=== PATIENT | female | born 1970 | race Caucasian/White ===

== ENCOUNTER 2018-09-20 21:14 | Inpatient (IN) | payer OTHER ==
[2018-09-20 22:15] LABS: PLATELET COUNT 250 10^3/uL (150-400)
--- NOTE | 2018-09-20 22:30 | EDPHY ---
HPI/HX/ROS/PE/MDM Narrative: CHIEF COMPLAINT: Depression, Here for medical clearance HPI: The patient is a 48-year-old female with history depression. She describes severe depressive symptoms over the last few weeks. She was referred to the ECT department for ECT therapy. They have sent her to the ER for medical clearance and then likely transferred to their unit for ECT and further treatment. The patient denies any recent illness or pain. REVIEW OF SYSTEMS: Aside from elements discussed in the HPI, a comprehensive 10-point review of systems was reviewed and is negative. PMH: Includes severe major depression. Insulin-dependent diabetes. Hypertension. SOCIAL HISTORY: Denies drug abuse. PHYSICAL EXAM: General:Patient is alert, she is currently sobbing. ENT:Eyes are normal to inspection. ENT inspection normal. Neck: Normal inspection. Full range of motion. Respiratory:No respiratory distress. Breath sounds normal bilaterally. Cardiovascular: Regular rate and rhythm. Strong peripheral pulses. Normal cap refill. Abdomen:The abdomen is nontender to palpation. There are no peritoneal signs. There are normal bowel sounds. Back: Normal to inspection. No tenderness to palpation. Skin: Normal color. No rash. Warm and dry. Extremities: Normal appearance. Full range of motion. Neuro: Normal motor function. Normal sensory function. Psychiatric: Depressed affect, currently sobbing and in tears. ED Course: 10:15 p.m.: The patient is medically clear for further psychiatric treatment and evaluation. - Data Points Laboratory Results: Laboratory Results 09/20/18 22:00 09/20/18 22:00 09/20/18 09/20/18 09/20/18 22:06 22:00 22:00 WBC RBC Hgb Hct MCV MCH MCHC RDW Plt Count MPV Neut % (Auto) Lymph % (Auto) [place] % (Auto) Eos % (Auto) Baso % (Auto) Nucleat RBC Rel Count Absolute Neuts (auto) Absolute Lymphs (auto) Absolute Monos (auto) Absolute Eos (auto) Absolute Basos (auto) Absolute Nucleated RBC Immature Gran % Immature Gran # Sodium 139 mEq/L mEq/L (135-145) Potassium 4.4 mEq/L mEq/L (3.3-5.0) Chloride 105 mEq/L mEq/L (97-110) Carbon Dioxide 21 mEq/l L mEq/l (22-31) Anion Gap 13 mEq/L mEq/L (6-14) BUN 26 mg/dL H mg/dL (7-23) Creatinine 1.1 mg/dL H mg/dL (0.6-1.0) Estimated GFR 53 Glucose 214 mg/dL H mg/dL (70-100) Calcium 9.4 mg/dL mg/dL (8.5-10.4) Beta HCG, Qual NEGATIVE Urine Opiates Screen Pending Urine Barbiturates Pending Ur Phencyclidine Scrn Pending Ur Amphetamine Screen Pending U Benzodiazepines Scrn Pending Urine Cocaine Screen Pending U Marijuana (THC) Screen Pending Ethyl Alcohol < 10 mg/dL mg/dL (0-10) 09/20/18 22:00 WBC 8.04 10^3/uL 10^3/uL (3.80-9.50) RBC 4.36 10^6/uL 10^6/uL (4.18-5.33) Hgb 11.3 g/dL L g/dL (12.6-16.3) Hct 35.5 % L % (38.0-47.0) MCV 81.4 fL L fL (81.5-99.8) MCH 25.9 pg L pg (27.9-34.1) MCHC 31.8 g/dL L g/dL (32.4-36.7) RDW 16.1 % H % (11.5-15.2) Plt Count 250 10^3/uL 10^3/uL (150-400) MPV 9.5 fL fL (8.7-11.7) Neut % (Auto) 54.7 % % (39.3-74.2) Lymph % (Auto) 37.7 % % (15.0-45.0) [place] % (Auto) 6.5 % % (4.5-13.0) Eos % (Auto) 0.2 % L % (0.6-7.6) Baso % (Auto) 0.5 % % (0.3-1.7) Nucleat RBC Rel Count 0.0 % % (0.0-0.2) Absolute Neuts (auto) 4.40 10^3/uL 10^3/uL (1.70-6.50) Absolute Lymphs (auto) 3.03 10^3/uL H 10^3/uL (1.00-3.00) Absolute Monos (auto) 0.52 10^3/uL 10^3/uL (0.30-0.80) Absolute Eos (auto) 0.02 10^3/uL L 10^3/uL (0.03-0.40) Absolute Basos (auto) 0.04 10^3/uL 10^3/uL (0.02-0.10) Absolute Nucleated RBC 0.00 10^3/uL 10^3/uL (0-0.01) Immature Gran % 0.4 % % (0.0-1.1) Immature Gran # 0.03 10^3/uL 10^3/uL (0.00-0.10) Sodium Potassium Chloride Carbon Dioxide Anion Gap BUN Creatinine Estimated GFR Glucose Calcium Beta HCG, Qual Urine Opiates Screen Urine Barbiturates Ur Phencyclidine Scrn Ur Amphetamine Screen U Benzodiazepines Scrn Urine Cocaine Screen U Marijuana (THC) Screen Ethyl Alcohol General Time Seen by Provider: 09/20/18 21:26 Initial Vital Signs: Initial Vital Signs Temperature (C) 36.7 C 09/20/18 21:21 Heart Rate 67 09/20/18 21:21 Respiratory Rate 18 09/20/18 21:21 Blood Pressure 128/92 H 09/20/18 21:21 O2 Sat (%) 98 09/20/18 21:21 O2 Delivery Mode Room Air Allergies/Adverse Reactions: No Known Allergies Allergy (Unverified 09/20/18 21:24) Home Medications: Medication Instructions Recorded Insulin Detemir [Levemir] 16 unit SQ HS 09/20/18 Insulin Lispro [Humalog] 0 unit SQ 09/20/18 Labetalol HCl [Trandate 100 mg (*)] 100 mg PO BID 09/20/18 Lurasidone HCl [Latuda] 80 mg PO DAILY@0800 09/20/18 Mirtazapine [Remeron] 15 mg PO HS 09/20/18 Simvastatin [Zocor] 40 mg PO HS 09/20/18 Sodium Bicarbonate [Na Bicarb 650 650 mg PO TID 09/20/18 MG (RX)] clonazePAM [Clonazepam] 1 mg PO BID 09/20/18 hydrOXYzine HCL [Vistaril 25MG] 25 mg PO Q4 PRN 11/13/18 Departure - Departure Disposition: [facility] Clinical Impression: Severe major depression Condition: Fair Referrals: ANGÉLICA BRODY [Other] - As per Instructions
[2018-09-20] MEDS ORDERED: LORazepam 1 MG TAB ONE (22:51)
[2018-09-20] MEDS ORDERED: LORazepam 1 MG TAB PO ONE (22:56)
--- NOTE | 2018-09-20 22:58 | ASMTTCLDSP ---
TLC Discharge Disposition Disposition: Answers: Admit Disposition Notes: Notes: In consultation with [facility] on-call psychiatrist, Maxx Serrano MD. Dr. Serrano advised that the patient be directly admitted on a voluntary basis. Was patient given the Answers: Yes Inpatient Behavioral [facility] Prohibited Belongings List while in the ED? For inpatient Maxx Serrano MD admission, the following psychiatrist agreed to accept patient for admission to Behavioral [facility] ([facility]): Date Signed: 09/20/2018 10:57 PM Electronically Signed By:Kimberly Stevenson
--- NOTE | 2018-09-20 22:58 | CPEKG ---
Test Reason : OPEN Blood Pressure : / mmHG Vent. Rate : 065 BPM Atrial Rate : 064 BPM P-R Int : 154 ms QRS Dur : 091 ms QT Int : 424 ms P-R-T Axes : 039 002 012 degrees QTc Int : 441 ms Sinus rhythm Confirmed by Davis Montague ([id number]) on 09/20/2018 10:57:33 PM Referred By: Confirmed By:Davis Montague
[2018-09-21] MEDS ORDERED: MAG HYDROX/AL HYDROX/SIMETH 30 ML UDCUP PO PRN (01:15)
[2018-09-21] MEDS ORDERED: MAGNESIUM HYDROXIDE 30 ML UDCUP PO PRN (01:15)
[2018-09-21] MEDS ORDERED: MIRTAZAPINE 15 MG TAB PO ONE (01:30)
[2018-09-21] MEDS: LORazepam 0.5 MG TAB PO PRN (11:06)
[2018-09-21] MEDS: clonazePAM 0.5 MG TAB PO SCH ×2 (12:18→20:14)
[2018-09-21] MEDS: LABETALOL HCL 100 MG TAB PO SCH ×2 (12:45→20:15)
[2018-09-21] MEDS: LURASIDONE HCL 80 MG TAB PO SCH (12:45)
[2018-09-21] MEDS ORDERED: D50W 25 GM/50 ML SYR IVP PRN (13:10)
--- NOTE | 2018-09-21 13:34 | ASMTBHMTP ---
Master Treatment Plan Master Treatment Plan Answers: Depressed Mood without for: Suicidal Ideation Date: 09/21/2018 Diagnosis on Admission: Major Depressive Disorder Expected length of stay: 5-10 Reason for admission: Notes: Ct. is a 48 y[address] [facility]. Ct. was a direct admission to the unit. Plan is to have ct. start ECT treatment. Patient's stated presenting problems: Notes: "I have severe anxiety and depression in the last 12 years. This episode started in 2017 and i have been hospitalized 8 times since Dec." Patient's goals for treatment: Notes: "To feel better". Patient's strengths: Notes: "I'm friendly and helpful". Identify supports outside of hospital: Notes: friend Ayana, . Discharge criteria: Notes: SI will resolve and patient will have a plan to safely manage recurrent suicidal ideations. Initial disposition plan/considerations: Notes: Start ECT treatment. Participate in unit activities. Master Treatment Plan Required Signatures Psychiatrist signature: Answers: Maxx Serrano MD: RN on-shift signature: Answers: RN: Patient signature: Answers: Patient: Date Signed: 09/21/2018 01:33 PM Electronically Signed By:Jania Diaz
--- NOTE | 2018-09-21 13:51 | BCON ---
INTERNAL MEDICINE CONSULTATION DATE OF CONSULTATION: 09/21/2018 REFERRING PHYSICIAN: Mercy Bahena MD REASON FOR REFERRAL: Medical clearance for inpatient behavioral health stay. HISTORY OF PRESENT ILLNESS: This person was referred to [facility] for ECT treatment for refractory depression. She was cleared through the emergency department and admitted with plan for electroconvulsive therapy She currently is without any acute medical complaints. PAST MEDICAL HISTORY: 1. Diabetes mellitus. Likely this was type 2, but she is currently managed on insulin alone. 2. Hypertension. 3. Chronic kidney disease with exacerbation in the past due to treatment with lithium concurrent with lisinopril. 4. Crohn disease. 5. Obstructive sleep apnea. 6. Dyslipidemia. 7. Depression and anxiety. PAST SURGICAL HISTORY: She has had an ileostomy and presumably colectomy. MEDICATIONS: Prior to admission: 1. Labetalol 100 mg p.o. b.i.d. 2. Hydroxyzine 25 mg p.o. q.4 hours p.r.n. 3. Clonazepam 1 mg p.o. b.i.d. 4. Mirtazapine 15 mg p.o. q.h.s. 5. Lurasidone 80 mg p.o. daily. 6. Sodium bicarbonate 650 mg p.o. t.i.d. 7. Simvastatin 40 mg p.o. q.h.s. 8. Insulin detemir 16 units subcutaneous q.h.s. 9. Insulin lispro on a sliding scale. ALLERGIES: There are no known drug allergies. SOCIAL HISTORY: She is , lives with her . She has 2 adult children. She has worked as a bed teacher in the past. She is a nonsmoker, nondrinker. She reports that when she is not anxious and depressed, she is able to exercise with walking and swimming. FAMILY HISTORY: Noncontributory. REVIEW OF SYSTEMS: She denies pain, cough, dyspnea, fevers, chills, recent weight change, nausea, vomiting. There is no constipation or diarrhea. She reports that she can independently manage her ileostomy. She reports that when she is in a psychiatric facility, her blood sugar management is done by nurses, though at times, she has been able to do it herself as well. PHYSICAL EXAM: VITAL SIGNS: Blood pressure is 125/79, heart rate is 72, respiratory rate is 14, oxygen saturation is 95% on room air, temperature is 36.3 degrees centigrade. Weight is 103.9 kg for a body mass index of 44.7. GENERAL: This is a very obese woman lying in bed, dressed in street clothes, cooperative, in no acute distress. HEENT: Extraocular movements are intact. Pupils are equal, round, reactive to light. Mucous membranes are moist. Dentition is in good condition. She has a crowded airway, Mallampati class 4. NECK: Supple. HEART: Regular rate and rhythm with no murmurs, rubs, or gallops. LUNGS: Clear to auscultation bilaterally. ABDOMEN: Benign. EXTREMITIES: There is no cyanosis or clubbing. There is obesity. There is considerable subcutaneous fat, which masks the exam regarding possible edema. NEUROLOGIC: She is alert and oriented x3. Cranial nerves 2-12 are grossly intact. There is no focal weakness and sensation is intact to light touch. LABORATORY DATA: From yesterday, CBC revealed anemia with hemoglobin of 11.3 and hematocrit of 35.5, MCV was low at 81.4. Otherwise, CBC was unremarkable. Serum chemistry revealed slightly elevated creatinine at 1.1 with an estimated GFR of 53, BUN was also elevated at 26, She had a low carbon dioxide at 21. Hemoglobin A1c was 9.5. Liver function tests were normal. Lipid panel revealed triglycerides high at 188, cholesterol low at 129, LDL low at 34, and HDL normal at 57. Beta hCG was negative for . Toxicology screen in the serum was negative for ethyl alcohol and in the urine was negative for any substances of abuse. ASSESSMENT/RECOMMENDATIONS: 1. Mental health issues. Pending electroconvulsive therapy. 2. Diabetes mellitus, type 2, on insulin. Query whether she might benefit from other medications, such as metformin, a DPP-4 Inhibitor, or a GLP-1 agonist , which might have the added benefit of weight loss for her. For now, I have ordered a lispro insulin sliding scale. It would be in her interest to follow up with Endocrinology after her discharge. 3. Hypertension. Appears to be adequately controlled on labetalol. If she is not to receive lithium in the future, would consider changing to first-line agent for diabetics, which would be an DEBORA inhibitor or an ARB. She reports she has an outpatient cookie mixer helper and she can follow up with Nephrology regarding this decision. 4. Chronic kidney disease, stage 3. 5. Presence of ileostomy. She reports that she is able to manage it herself and has brought supplies. 6. Obstructive sleep apnea. She reports that she has brought her CPAP with her and it should be used while she is here. 7. Dyslipidemia. Continue statin. 8. Anemia, unclear etiology. I have ordered a reticulocyte count, as well as an iron panel to be added onto yesterday's labs. 9. Morbid obesity. Dietary consult. Encourage exercise. I see no medical contraindications to this patient's continued stay on the inpatient behavioral health unit or to any psychiatric medications or procedures. Thank you very much for including me in the care of this patient. I will continue to follow along regarding her glycemic management. Please do not hesitate to contact me or the hospitalist service should there be need for any other medical care. /[id number]/MODL MTDD
[2018-09-21] MEDS: SODIUM BICARBONATE 650 MG TAB PO SCH ×2 (15:29→20:15)
[2018-09-21] MEDS: INSULIN LISPRO 100 UNIT/ML SC SCH (16:53)
[2018-09-21] MEDS: ATORVASTATIN CALCIUM 20 MG TAB PO SCH (20:14)
[2018-09-21] MEDS ORDERED: INSULIN GLARGINE 100 UNITS/ML UNIT SC SCH (21:00)
[2018-09-22] MEDS: LURASIDONE HCL 80 MG TAB PO SCH (08:20)
[2018-09-22] MEDS: clonazePAM 0.5 MG TAB PO SCH ×2 (08:21→17:32)
[2018-09-22] MEDS: INSULIN LISPRO 100 UNIT/ML SC SCH ×3 (08:21→17:09)
[2018-09-22] MEDS: SODIUM BICARBONATE 650 MG TAB PO SCH ×3 (08:21→19:20)
[2018-09-22] MEDS: LABETALOL HCL 100 MG TAB PO SCH ×2 (08:21→19:19)
--- NOTE | 2018-09-22 09:20 | SOAPPROG ---
SOAP Progress Note Assessment/Plan: Assessment: Plan: Subjective: Pt seen yesterday and today. She is an inconsistent historian, I am in contact with recent providers and have requested records from recent hospitalizations. The general impression is that she is a good candidate for ECT despite numerous chronic medical conditions. I believe she has capacity for medical decisions making. Will involve her also. Hope to obtain adequate data by this afternoon and finalize decision for treatment. If we decide to proceed, could start as early as tomorrow. Pt is "100% in favor" of doing ECT. Left with patient educational materials yesterday. Objective: Vital Signs Temp Pulse Resp BP Pulse Ox 36.4 C 80 15 132/64 H 98 09/22/18 06:00 09/22/18 06:00 09/22/18 06:00 09/22/18 06:00 09/22/18 06:00 Laboratory Results 09/21/18 13:10 MSE: Marginally groomed, hyperactive, fidgety. Grunts, moans, sighs, puffs constantly during interview. Affect is dysphoric, blunted. Mood is "bad, real bad." TP is generally linear with negative perseverations on physical and mental health. TC reveals no psychosis. No active SI, though states, "I know I can't do this any more. I can't go on like this. I am not safe to go home." - Time Spent With Patient Time Spent With Patient: 75" total ICD10 Worksheet Patient Problems: Problems Problem Status Onset Severe major depression Acute
[2018-09-22] MEDS: LORazepam 0.5 MG TAB PO PRN (10:52)
[2018-09-22] MEDS ORDERED: CITRIC ACID/SODIUM CITRATE 30 ML UDCUP PO PRN (15:07)
[2018-09-22] MEDS ORDERED: NS 1,000 ML IV PRN (15:07)
[2018-09-22] MEDS ORDERED: ONDANSETRON DISINTEGRATING 4 MG TAB PO PRN (15:07)
[2018-09-22] MEDS ORDERED: HYDROCODONE/APAP 5/325 TAB PO PRN (15:12)
--- NOTE | 2018-09-22 16:51 | BAPA ---
DATE OF SERVICE: 09/21/2018 DATE OF EVALUATION: 09/21/2018, and 09/22/2018. SOURCES OF INFORMATION: Include review of psychiatric admission history done 09/09/2018, and by Dr. Nancy Simental MD at the [facility] in [place], [place], personal conversation with Dr. Melissa Ley, phone # [phone], who is also a covering psychiatrist at the [facility] and had treated the patient, kiranie w with the patient over 2 days. TIME SPENT: 120 minutes. CHIEF COMPLAINT: "I'm at the end of my rope. I can't take this anymore. I don't know what to do. I can't do anything." HISTORY OF PRESENT ILLNESS: Patient is a 48-year-old female with a history of approximately 10 years of fairly treatment resistant depression. She states that she has been treated with Zoloft and Effe xor over the last 10 years, which she states have been moderately helpful, but that she has never exp erienced a full remission of her depression. 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 She states she notic ed a significant decline in functioning at that time, though is unable to relate it to any specific e vent or circumstance. She continued in her roles until December of 2017, at which time, she states t hat she began to suffer from much more severe feelings of depression and anxiety leading to thoughts of suicide. She was hospitalized at that time at [facility] in [place] and states that this wa s helpful. She returned home and her symptoms quickly returned, and she was then rehospitalized acut mk and for PHP at [place] in January. She again felt better and her medications were adjusted, thou gh she is unclear what was prescribed. She does know that in the last hospitalization, she was presc ribed Latuda, which she believes has been unhelpful thus far. She then had several other discharges and readmissions to either [facility] or [facility] totaling a total of 7 hospitalizations. Her last hospitalization was in August of 2018, at [facility] for continued severe depression and an xiety, and they reportedly then made a plan to transfer her to the [facility], which is a residential [facility] in [place]. She arrived at this treatment facility and the staff there apparently fe lt that she was not a good match. For one thing, they are a trauma recovery facility and she has no past history of traumas. She also appeared to be at a higher level of acuity than they typically acc ept in the residential setting, and recommended that she be transferred to a local acute care psychia tric facility. Her insurance company reportedly did not authorize this, stating that she needed to r eturn to [place] if she was to seek further inpatient treatment. The staff at the [facility] also belie ve she was a good candidate for ECT and stated that this [facility] had a university a ffiliation and was able to provide ECT, but the insurance again denied it. The patient's was then contacted and he flew back to [place], picked her up, and brought her back to [place], where katie miller was taken to the emergency department at [facility]. She was evaluated there by our TLC providers and felt to remain seriously depressed. She has disavowed thoughts of suicide directly , but has made numerous statements in regard to not being able to live any longer and not being able to care for herself. She was ultimately admitted for further evaluation to our service. I saw the patient yesterday for approximately an hour, then today again for 30 minutes. I discussed with her, her recent history and she stated that she could not remember dates and times or the names of most medications she was given. I did not have records from this facility, so they have been requ ested, and so I do not have specifics about medications that she took. She states that she was on mu ltiple antidepressants and "other meds," but cannot remember names. She states that she has never ex perienced depression to the extent that she has now, and the only precipitant she can identify is the of her mother in June of this year, but that was after she had already had 5 recurrent hospi talizations since the beginning of 2018. She acknowledges feeling out of control and unable to care for herself, and states that this is very unusual for her. She states that she is unable to interact appropriately with others, and that normally she is "happy and easy going." On the unit since arriving, she has appeared extremely anxious, unable to give much history, pacing, panting, and moaning at all times. She sits in the day room or groups, though was unable to actively participate due to what appears to be internal preoccupation or the severe anxiety. She is able to state repeatedly that she wants help and that she does not feel right or that she does not feel well. She states that she would like to do ECT "because I think it will help me." She states her is supportive of this. I provided her with the standard educational materials yesterday, which she states she reviewed herself and then reviewed with her , and asked a number of specific questi ons in regard to the anesthesia, the course of treatment, and the mode of treatment. I have not been able to speak with her directly, though I have left him a message. He apparently does not g et cell service at his job. Patient's index symptoms at this time are her severely depressed mood, intense and overriding anxiety , both generalized and episodically more acute, trouble concentrating, short-term memory deficits, pe rseveration on and dying, and feelings of hopelessness and helplessness, feelings of shame and guilt and disordered sleep. PAST PSYCHIATRIC HISTORY: Largely as above. Patient has had the [facility] recent [facility], and then, the brief stay at the residential facility in [place]. She denies hospital hospitalizations prior to 2018. She denies specific history of suicide attempts. She could not recall what medicine she has previously taken. ALLERGIES: No known medical allergies. CURRENT MEDICATIONS: Clonazepam 1 mg p.o. b.i.d., Latuda 80 mg daily, sodium bicarb 650 mg t.i.d., Z ocor 40 mg at h.s., labetalol 100 mg b.i.d., Levemir insulin 16 units subcu at at bedtime, recently i ncreased to 19 units by our rn float, Remeron 15 mg h.s., and Humalog per sliding scale. PAST MEDICAL HISTORY: Significant for type 2 diabetes that is currently managed with insulin only, h ypertension, chronic kidney disease possibly due to lithium toxicity, Crohn disease, obstructive slee p apnea on CPAP, dyslipidemia. PAST SURGICAL HISTORY: Patient has had a total colectomy with ileostomy due to Crohn disease. SOCIAL HISTORY: Patient lives in [place] with her . She has degrees in psychology and special education, though has not worked since February of this year after she had this serious decline. Katie miller has reportedly applied for social security disability income. She has 2 adult children, and a 23-y ear-old lives at home with her. She was born and raised in [place], [place], and has 2 older brot hers. She is observant of the [employer] and states that they do not use any electrical appliances on the sablinden. She mentions this because her may then be unavailable on wednesday unt il wednesday. SUBSTANCE ABUSE HISTORY: Noncontributory. FAMILY HISTORY: Noncontributory per patient's report. DIAGNOSTIC DATA: Admission laboratory: CBC shows an H and H down at 11.3 and 35.5 with an MCV low at 81.4. Iron was normal, TIBC was normal at 387. Reticulocyte count was normal at 0.110 and the perc ent reticulocyte was normal at 2.44. EKG showed a QTc of 441 msec and otherwise normal sinus rhythm. MENTAL STATUS EXAMINATION: Reveals an obese, somewhat disheveled female, casually appropriately dres sed. She is alert, interactive, and responds to her name. She struggles to interact, however, panti ng and moaning throughout the interview. She often murmurs the words "no" and "I feel bad." She henrietta es poor eye contact with her head generally downcast. She answers most questions in a goal-directed fashion, though there is some delay at times. Her affect is blunted to flat, dysphoric, stable, and congruent. Her mood is described as "really depressed." Her thought process is linear and goal dire cted. Her thought content reveals an overriding somatic focus, though no apparent delusions. She de nies auditory, visual, or tactile hallucinations. She is alert and oriented to person, place, time, and situation, and her sensorium is clear. Her intellect appears to be at least average as evidence d by her educational and occupational history, fund of knowledge, and vocabulary. She denies active thoughts of suicide, though states she no longer wants to live in her current condition. Her insight and judgment appear to be good. IMPRESSION: 1. Major depressive disorder, recurrent, severe, without psychosis, chronic with treatment-resistant features. 2. Possible generalized anxiety disorder. 3. Crohn disease, status post total colectomy and ileostomy. 4. Type 2 diabetes. 5. Hypertension. 6. Obesity. 7. Sleep apnea. 8. Unemployment, financial stressors. Patient is a 48-year-old female with a history of at least 10 years of worsening depression. She has had a worsened course over the last 18 months with a more precipitous decline since December of this year. It is unclear what the precipitants, if any were to this, other than the obvious physiologic stress that she is under with her multiple systemic illnesses, including her poorly managed diabetes. Regardless, she appears to be severely depressed at this time and has shown herself to be completel y unable to manage outside of the hospital. It is unclear why she got referred to a trauma program o n a residential level out of state, but I agree completely that she needs to be in an inpatient unit at this time. I further agree that ECT is an appropriate course of treatment at this time. I have a letter of referral from Dr. Fawad Morales, medical data entry clerk at the [facility] and I have spoken with Lucretia Ley personally, who strongly recommends electroconvulsive therapy as well. I have discussed the risks, benefits, and alternatives of ECT with the patient at length, both yester day and then today after she had the opportunity to review the educational materials. She is struggl ing at this time to interact well due to her severe anxiety and depression, but she does appear to un derstand the materials and be able to provide informed consent. I have discussed with her specifical ly that she meets criteria in having failed 3 previous trials of antidepressants, mood stabilizers, o r antipsychotics. She has also had a significantly extended duration of subtherapeutic response to p revious treatments. I believe that she is at high risk for suicide given the severity of her multipl e physical illnesses and her depression, and the promise of neurovegetative symptoms. She does not a ppear to have a primary personality disorder as her recent decompensation is acute and time limited a nd not something that has existed for a long time. She has no specifically contraindicating medical illnesses, though we will definitely need to pay attention to her diabetes and she may be difficult t o ventilate with her history of sleep apnea, and her body habitus. I have discussed with the patient that her main alternative to electroconvulsive therapy is ongoing m edication changes. Due to her treatment previous treatment response and the severity of her current symptoms, I have indicated to her a 15% to 18% chance of reaching remission with further medication t rials. I have also indicated a 60% to 65% chance of remission with electroconvulsive therapy. I discussed the course of treatment and the patient understands that the acute phase is performed on a Wednesday, Wednesday, Wednesday basis. She requests to be in the hospital as she feels she cannot care f or herself at home, and her has reported to staff that he does not believe that he can care f or her either. Previous recent trials at home have failed and I believe that the only reasonable cou rse is to have her remain inpatient at this time until she improves with electroconvulsive therapy an d is able to return home with a higher functional status. I discussed the typical range of treatments between 9 and 12, though with her, I indicated that she m ay require more given the severity of her symptoms. Patient understands there is no guarantee electr oconvulsive therapy will be effective. I discussed the extremely rare, rare, uncommon, and common side effects of electroconvulsive therapy, including major risks, such as occurring 1 in 10,000, and severe risks that are possible in th e cardiovascular and central nervous systems. I discussed common side effects, such as nausea and he adaches, as well as confusion and agitation that are possible. Particular time was spent discussing transient and persistent cognitive side effects of electroconvul sive therapy. Side effects, such as anterograde, retrograde, and autobiographical memory deficiencie s were discussed with emphasis on decreased working memory and trouble with retention of information, especially during the acute course, especially on the treatment day. The patient understands the behavioral restrictions requisite with electroconvulsive therapy, includi ng n.p.o. requirements and time frames, 24-hour monitoring on treatment days. No driving during the acute phase of treatment or on any treatment day, and the fact that there will be medication adjustme nts during treatment. She states that she is overwhelmed by the prospect of organizing any of that, and I reiterate to her that she will be in the hospital for the beginning of her treatment, and as sh e improves, she will likely be able to transition back home. All-in-all, I think the patient is a good candidate for electroconvulsive therapy due to the severity of her symptoms and her history of treatment resistance. I recommend we proceed with electroconvuls nae therapy as soon as possible, and the patient is agreeable. Again, I will discuss this with her h band at my first convenience. /[id number]/MODL
[2018-09-22] MEDS: ATORVASTATIN CALCIUM 20 MG TAB PO SCH (19:19)
[2018-09-22] MEDS: INSULIN GLARGINE 100 UNITS/ML UNIT SC SCH (19:20)
[2018-09-23] MEDS ORDERED: ONDANSETRON DISINTEGRATING 4 MG TAB PO PRN (04:00)
[2018-09-23] MEDS ORDERED: CITRIC ACID/SODIUM CITRATE 30 ML UDCUP PO PRN (04:00)
[2018-09-23] MEDS ORDERED: LIDOCAINE 2% 5 ML SDV ONE (04:57)
[2018-09-23] MEDS ORDERED: CITRIC ACID/SODIUM CITRATE 30 ML UDCUP ONE (05:36)
[2018-09-23] MEDS ORDERED: ONDANSETRON DISINTEGRATING 4 MG TAB ONE (05:36)
[2018-09-23] MEDS: NS 1,000 ML IV PRN (06:01)
--- NOTE | 2018-09-23 06:08 | PDANEPAE ---
ECT Pre Anesthetic Evaluation Allergies/Adverse Reactions: No Known Allergies Allergy (Unverified 09/20/18 21:24) Patient ID confirmed: Yes H&P reviewed: Yes Pre-anesthetic history reviewed: Yes Heart: regular rate and rhythym Lungs: no respiratory distress Mallampati Score: Class 3 ASA Status: III Home Medications: Medication Instructions Recorded Insulin Detemir [Levemir] 16 unit SQ HS 09/20/18 Insulin Lispro [Humalog] 0 unit SQ AC 09/20/18 Labetalol HCl [Trandate 100 mg (*)] 100 mg PO BID 09/20/18 Lurasidone HCl [Latuda] 80 mg PO DAILY@0800 09/20/18 Mirtazapine [Remeron] 15 mg PO HS 09/20/18 Simvastatin [Zocor] 40 mg PO HS 09/20/18 Sodium Bicarbonate [Na Bicarb 650 650 mg PO TID 09/20/18 MG (RX)] clonazePAM [Clonazepam] 1 mg PO BID 09/20/18 hydrOXYzine HCL [Vistaril 25MG] 25 mg PO Q4 PRN 09/20/18 Medication review: completed Patient interviewed: Yes Patient examined: Yes Anesthetic plan discussed with patient: Yes Anesthetic risks discussed with patient: Yes ECT Pre-Anesthetic History - Height & Weight Height: 152.4 cm Weight: 103.873 kg BMI: 44.72 - Anesthesia History Hx Anesthesia Complications (with details): None Family Hx Anesthesia Complications: None - Medications In the Past 6 Months the Patient Has Taken: Insulin, Blood Pressure Medication - Tobacco/Alcohol/Drug Use Smoking Status: Never smoked Hx Drug/Substance Abuse: No Alcohol Use: No - Prior Surgeries/Hospitalizations Prior Surgeries: Ileostomy, unsure what year. Prior Medical Hospitalizations: Patient unsure, besides ileostomy surgery. - Pulmonary History ECT Hx Asthma: No Hx Abnormal Chest X-Ray: No Hx Oxygen in Use at Home: No - Cardiovascular History Hx Hypertension: Yes Currently Uses Hypertension Medication: Yes Hx Arrhythmias: No Hx Palpitations: No Hx Chest Pain: No Hx Coronary Artery / Peripheral Vascular Disease: No Hx Blood Clot: No - Neurologic History Hx Cerebrovascular Accident: No Hx CT Scan Or MRI Of The Brain: No Hx Epilepsy, Convulsions, Seizures, Or Blackouts: No Hx Frequent Or Severe Headaches: No Hx Numbness: No Hx Neurologic Disorder: No - Dental History Current Dental Issues: None - Endocrine History Hx Diabetes: Yes Current Daily Insulin Injections: Yes Hx Thyroid Problems: No Endocrine History Comment: Pt takes Lantus at night and Lispro TID with meals. - Renal/Urologic History Hx Renal Disorders: No Hx Urinary Tract Problems: No - Liver History Hx Hepatic Disorders: No - Cancer History Hx Cancer: No - Hematology History Hx Unexplained Bleeding Of Any Type: No Hx Ease Of Bruising: No Hx Anemia: No - Gastrointestinal History Hx Gastroesophogeal Reflux Disease: No Hx Ulcers: No Hx Hiatal Hernia: No Hx Difficulty Swallowing: No - Musculoskeletal Hisory Hx Chronic Pain: No Hx Arthritis: No - Opthalmic History Hx Glaucoma: No Visual Assistive Devices: Glasses Hx Opthalmic Disorders: No - Other Health History Physical Disabililty: No Recent Cough, Cold, or Fever: No Significant Weight Loss In The Last 4 Months: No Possible the Patient Might be : No
--- NOTE | 2018-09-23 06:17 | PDECTPN ---
ECT Progress Note Patient Problems: Problems Problem Status Onset Code Severe major depression Acute F32.2 Date: 09/23/18 ECT provider: Krystian Serrano Anesthesia: Huy Sidhu Stimulus dose (%): 35 Pulse width: 0.5 ECT EMG (sec): 34 ECT EEG (sec): 73 ECT treatment type: bilateral QIDS-SR Total Score: 14 QIDS-SR Question #12 Score: 0 MMSE Total Score (Max = 21): 17 Next ECT date: 09/26/18 Next ECT time: 06:30 Home medications: Medication Instructions Recorded Insulin Detemir [Levemir] 16 unit SQ HS 09/20/18 Insulin Lispro [Humalog] 0 unit SQ AC 09/20/18 Labetalol HCl [Trandate 100 mg (*)] 100 mg PO BID 09/20/18 Lurasidone HCl [Latuda] 80 mg PO DAILY@0800 09/20/18 Mirtazapine [Remeron] 15 mg PO HS 09/20/18 Simvastatin [Zocor] 40 mg PO HS 09/20/18 Sodium Bicarbonate [Na Bicarb 650 650 mg PO TID 09/20/18 MG (RX)] clonazePAM [Clonazepam] 1 mg PO BID 09/20/18 hydrOXYzine HCL [Vistaril 25MG] 25 mg PO Q4 PRN 09/20/18 Medication review: completed Current treatment plan: acute phase Treatment plan frequency: 3 times per week ECT narrative: Pt presents for initial ECT treatment. She remains very anxious and depressed; helpless, hopeless. She voices expectation that she will benefit from ECT. Given opportunity to ask further questions, states she is "good."
[2018-09-23] MEDS ORDERED: ROCURONIUM 50 MG/5 ML VIAL ONE ×2 (06:31→06:53)
[2018-09-23] MEDS ORDERED: fentaNYL 100 MCG/2 ML INJ ONE ×2 (06:31→06:52)
[2018-09-23] MEDS ORDERED: ONDANSETRON 4 MG/2 ML VIAL ONE ×2 (06:31→06:52)
[2018-09-23] MEDS ORDERED: SUCCINYLCHOLINE CHLORIDE 200 MG/10 ML VIAL ONE ×2 (06:32→06:53)
[2018-09-23] MEDS ORDERED: METHOHEXITAL SODIUM 100 MG/10 ML SYR IVP ONE (06:32)
[2018-09-23] MEDS ORDERED: GLYCOPYRROLATE 0.2 MG/1 ML VIAL ONE ×2 (06:34→06:52)
[2018-09-23] MEDS ORDERED: MIDAZOLAM 2 MG/2 ML VIAL ONE ×2 (06:34→06:52)
--- NOTE | 2018-09-23 06:50 | PDHPUP ---
History & Physical Update H&P update statement: This history and physical update is based on an assessment of the patient which was completed after admission or registration (within 24 hours), but prior to the surgery/procedure. H&P update: H&P reviewed & patient examined, no change in patient's condition since H&P completed
[2018-09-23] MEDS ORDERED: ETOMIDATE 20 MG/10 ML VIAL ONE (06:52)
[2018-09-23] MEDS ORDERED: PROPOFOL 200 MG/20 ML VIAL ONE (06:52)
[2018-09-23] MEDS ORDERED: KETOROLAC 30 MG/1 ML SDV ONE (06:52)
[2018-09-23] MEDS ORDERED: LABETALOL HCL 5 MG/ML 20 ML MDV ONE (07:11)
[2018-09-23] MEDS: INSULIN LISPRO 100 UNIT/ML SC SCH ×3 (08:39→16:51)
[2018-09-23] MEDS: LURASIDONE HCL 80 MG TAB PO SCH (08:39)
[2018-09-23] MEDS: SODIUM BICARBONATE 650 MG TAB PO SCH ×3 (08:40→20:29)
[2018-09-23] MEDS: LABETALOL HCL 100 MG TAB PO SCH ×3 (08:40→20:29)
[2018-09-23] MEDS: clonazePAM 0.5 MG TAB PO SCH ×2 (08:40→20:28)
[2018-09-23] MEDS: FERROUS SULFATE 325 MG TAB PO SCH (08:40)
--- NOTE | 2018-09-23 15:14 | ASMTCMCOM ---
CM Note CM Note Notes: CC attempted to met with pt. but pt. was asleep each time CC approached. Pt. had her first ECT this morning. Staff report pt. sleeping 8.5 hours and being medication compliant. Pt. is scheduled for ECT on Wednesday Date Signed: 09/23/2018 03:13 PM Electronically Signed By:Amy Dozier
[2018-09-23] MEDS: INSULIN GLARGINE 100 UNITS/ML UNIT SC SCH (20:28)
[2018-09-23] MEDS: ATORVASTATIN CALCIUM 20 MG TAB PO SCH (20:55)
[2018-09-24] MEDS: FERROUS SULFATE 325 MG TAB PO SCH (08:40)
[2018-09-24] MEDS: INSULIN LISPRO 100 UNIT/ML SC SCH ×3 (08:40→17:44)
[2018-09-24] MEDS: clonazePAM 0.5 MG TAB PO SCH ×2 (08:40→20:07)
[2018-09-24] MEDS: LURASIDONE HCL 80 MG TAB PO SCH (08:40)
[2018-09-24] MEDS: LABETALOL HCL 100 MG TAB PO SCH ×2 (08:41→20:08)
[2018-09-24] MEDS: SODIUM BICARBONATE 650 MG TAB PO SCH ×3 (08:41→20:08)
--- NOTE | 2018-09-24 09:50 | ASMTCMCOM ---
CM Note CM Note Notes: Client remains on the unit through out the day watching TV and being around peers. Client continues to exhibit anxious behaviors, inappropriately coming up to staff with request. Her anxious behaviors continue to present the same: hyperventilating, soft broken speech, active body language, she presents as hopeless to staff and others; while presenting with anxious/labile affect. Date Signed: 09/24/2018 09:49 AM Electronically Signed By:Raúl Zafar
--- NOTE | 2018-09-24 13:46 | SOAPPROG ---
SOAP Progress Note Assessment/Plan: Assessment: Diabetes mellitus. Fastings continue high. Increased insulin glargine from 19 U and HS to 22 U at HS starting 09/24/2018. Observed patient to be highly anxious. Did not eat lunch. Scheduled lispro insulin was held. Would like to discuss initiating metformin but she is not in an appropriate mental state for discussion at present. Will continue to follow. 09/24/18 13:44 Subjective: Blood sugar review Objective: Vital Signs Temp Pulse Resp BP Pulse Ox 36.5 C 78 16 126/79 H 100 09/23/18 08:45 09/24/18 08:41 09/24/18 06:00 09/24/18 08:41 09/24/18 06:00 Laboratory Results 09/21/18 13:10 09/23/18 09/24/18 09/25/18 05:59 05:59 05:59 Intake Total 400 Balance 400 ICD10 Worksheet Patient Problems: Problems Problem Status Onset Severe major depression Acute
[2018-09-24] MEDS: LORazepam 0.5 MG TAB PO PRN (16:58)
--- NOTE | 2018-09-24 17:33 | SOAPPROG ---
SOARCELIA Progress Note Assessment/Plan: Assessment: Per Dr. Serrano's last note: Pt presents for initial ECT treatment. She remains very anxious and depressed; helpless, hopeless. She voices expectation that she will benefit from ECT. Given opportunity to ask further questions, states she is "good." Plan: 09/24/18 17:29 1. Patient lying in bed fully clothed. Anxious, feeling "dizzy." She admits she hasn't been drinking enough fluids and didn't eat much lunch. MD encouraged appropriate intake. 2. Patient says she can't tell any difference from ECT "yet." 3. Voluntary Subjective: Patient lying in bed when MD first met her. She reports feeling "anxious" and dizzy today. MD encouraged sufficient fluid intake as patient said she hadn't been eating or drinking much. In afternoon, patient attended group therapy and seemed calmer and more engaged. She denied any SI/HI. Objective: Vital Signs Temp Pulse Resp BP Pulse Ox 36.5 C 78 16 126/79 H 100 09/23/18 08:45 09/24/18 08:41 09/24/18 06:00 09/24/18 08:41 09/24/18 06:00 Laboratory Results 09/21/18 13:10 09/23/18 09/24/18 09/25/18 05:59 05:59 05:59 Intake Total 400 Balance 400 MSE: Affect: Anxious Mood: "Anxious" TP: Linear TC: Denies any SI/HI Insight /Judgment: Fair - Time Spent With Patient Time Spent With Patient: 15" - Pending Discharge Pending Discharge Within 24 Hours: No Pending Discharge Within 48 Hours: No ICD10 Worksheet Patient Problems: Problems Problem Status Onset Severe major depression Acute
[2018-09-24] MEDS: ATORVASTATIN CALCIUM 20 MG TAB PO SCH (20:07)
[2018-09-24] MEDS: INSULIN GLARGINE 100 UNITS/ML UNIT SC SCH (22:51)
[2018-09-25] MEDS: INSULIN LISPRO 100 UNIT/ML SC SCH ×3 (08:24→17:43)
[2018-09-25] MEDS: clonazePAM 0.5 MG TAB PO SCH ×2 (08:25→17:21)
[2018-09-25] MEDS: LURASIDONE HCL 80 MG TAB PO SCH (08:25)
[2018-09-25] MEDS: SODIUM BICARBONATE 650 MG TAB PO SCH ×3 (08:25→20:06)
[2018-09-25] MEDS: FERROUS SULFATE 325 MG TAB PO SCH (08:27)
[2018-09-25] MEDS: LABETALOL HCL 100 MG TAB PO SCH ×2 (08:27→20:06)
--- NOTE | 2018-09-25 17:07 | SOAPPROG ---
SOAP Progress Note Assessment/Plan: Assessment: Per Dr. Serrano's last note: Pt presents for initial ECT treatment. She remains very anxious and depressed; helpless, hopeless. She voices expectation that she will benefit from ECT. Given opportunity to ask further questions, states she is "good." Plan: 09/24/18 17:29 1. Patient lying in bed fully clothed. Anxious, feeling "dizzy." She admits she hasn't been drinking enough fluids and didn't eat much lunch. MD encouraged appropriate intake. 2. Patient says she can't tell any difference from ECT "yet." 3. Voluntary 09/25/18 17:04 1. At times tearful and anxious. Other times smiling, engaged in milieu activities/groups. 2. Dr. Pinto increased NANCY dose of Glargine. FSBS this AM were 179-255. 3. Voluntary 4. Next ECT on Wednesday Subjective: Patient was calmer and less anxious this AM. However, after visit with her and daughter, patient became tearful and sad. She slept 7.5 hrs last night and ate 100% of meals. She says she feels "safe" on unit and denies any SI. Objective: Vital Signs Temp Pulse Resp BP Pulse Ox 36.5 C 78 16 123/62 H 96 09/23/18 08:45 09/25/18 08:27 09/25/18 06:00 09/25/18 08:27 09/25/18 06:00 Laboratory Results 09/21/18 13:10 09/24/18 09/25/18 09/26/18 05:59 05:59 05:59 Intake Total 400 Balance 400 MSE: Affect: Tearful at times, smiling at other times Mood: "Anxious" TP: Linear TC: Denies any SI/HI, no delusions Insight/Judgment: Fair - Time Spent With Patient Time Spent With Patient: 15" - Pending Discharge Pending Discharge Within 24 Hours: No Pending Discharge Within 48 Hours: No ICD10 Worksheet Patient Problems: Problems Problem Status Onset Severe major depression Acute
[2018-09-25] MEDS: ATORVASTATIN CALCIUM 20 MG TAB PO SCH (20:06)
[2018-09-25] MEDS: INSULIN GLARGINE 100 UNITS/ML UNIT SC SCH (20:06)
[2018-09-26] MEDS: ACETAMINOPHEN 325 MG TAB PO PRN ×2 (04:19→19:16)
[2018-09-26] MEDS ORDERED: LIDOCAINE 2% 5 ML SDV ONE (06:08)
[2018-09-26] MEDS ORDERED: ONDANSETRON DISINTEGRATING 4 MG TAB PO PRN (07:15)
[2018-09-26] MEDS ORDERED: CITRIC ACID/SODIUM CITRATE 30 ML UDCUP PO PRN (07:15)
[2018-09-26] MEDS ORDERED: NS 1,000 ML IV PRN (07:15)
[2018-09-26] MEDS: clonazePAM 0.5 MG TAB PO SCH ×2 (07:38→17:28)
[2018-09-26] MEDS: SODIUM BICARBONATE 650 MG TAB PO SCH (07:59)
[2018-09-26] MEDS: LURASIDONE HCL 80 MG TAB PO SCH (08:00)
[2018-09-26] MEDS: LABETALOL HCL 100 MG TAB PO SCH ×2 (08:01→20:25)
[2018-09-26] MEDS: INSULIN LISPRO 100 UNIT/ML SC SCH ×3 (08:24→17:31)
[2018-09-26] MEDS ORDERED: CITRIC ACID/SODIUM CITRATE 30 ML UDCUP ONE (08:52)
[2018-09-26] MEDS ORDERED: ONDANSETRON DISINTEGRATING 4 MG TAB ONE (08:52)
[2018-09-26] MEDS: NS 1,000 ML IV PRN (09:06)
[2018-09-26] MEDS ORDERED: MIDAZOLAM 2 MG/2 ML VIAL ONE (09:09)
[2018-09-26] MEDS ORDERED: METHOHEXITAL SODIUM 100 MG/10 ML SYR IVP ONE (09:10)
[2018-09-26] MEDS ORDERED: fentaNYL 100 MCG/2 ML INJ ONE (09:10)
--- NOTE | 2018-09-26 09:20 | POSTANESTH ---
Post Anesthetic Evaluation Cardiovascular Status: Normal, Stable Respiratory Status: Normal, Stable Level of Consciousness/Mental Status: Can Participate in Eval, Other, See Comment (flat affect, similar to pre-op) Pain Control: Adequate, Prn Tx Ordered Nausea/Vomiting Control: Adequate, Prn Tx Ordered Complications Possibly Related to Anesthesia: None Noted
--- NOTE | 2018-09-26 09:20 | PDHPUP ---
History & Physical Update H&P update statement: This history and physical update is based on an assessment of the patient which was completed after admission or registration (within 24 hours), but prior to the surgery/procedure. H&P update: H&P reviewed & patient examined, changes noted (Pt is an inpatient. Please see progress notes for any daily changes. BS better controlled today.)
[2018-09-26] MEDS ORDERED: PROPOFOL 200 MG/20 ML VIAL ONE (09:24)
--- NOTE | 2018-09-26 09:32 | PDANEPAE ---
ECT Pre Anesthetic Evaluation Allergies/Adverse Reactions: No Known Allergies Allergy (Unverified 09/20/18 21:24) Patient ID confirmed: Yes H&P reviewed: Yes Pre-anesthetic history reviewed: Yes Heart: regular rate and rhythym Lungs: no respiratory distress Mallampati Score: Class 3 ASA Status: III Home Medications: Medication Instructions Recorded Insulin Detemir [Levemir] 16 unit SQ HS 09/20/18 Insulin Lispro [Humalog] 0 unit SQ AC 09/20/18 Labetalol HCl [Trandate 100 mg (*)] 100 mg PO BID 09/20/18 Lurasidone HCl [Latuda] 80 mg PO DAILY@0800 09/20/18 Mirtazapine [Remeron] 15 mg PO HS 09/20/18 Simvastatin [Zocor] 40 mg PO HS 09/20/18 Sodium Bicarbonate [Na Bicarb 650 650 mg PO TID 09/20/18 MG (RX)] clonazePAM [Clonazepam] 1 mg PO BID 09/20/18 hydrOXYzine HCL [Vistaril 25MG] 25 mg PO Q4 PRN 09/20/18 Patient interviewed: Yes Patient examined: Yes See previous record: Yes Anesthetic plan discussed with patient: Yes Anesthetic risks discussed with patient: Yes ECT Pre-Anesthetic History - Height & Weight Height: 152.4 cm Weight: 103.873 kg BMI: 44.72 - Anesthesia History Hx Anesthesia Complications (with details): None Family Hx Anesthesia Complications: None - Medications In the Past 6 Months the Patient Has Taken: Insulin, Blood Pressure Medication - Tobacco/Alcohol/Drug Use Smoking Status: Never smoked Hx Drug/Substance Abuse: No Alcohol Use: No - Prior Surgeries/Hospitalizations Prior Surgeries: Ileostomy, unsure what year. Prior Medical Hospitalizations: Patient unsure, besides ileostomy surgery. - Pulmonary History ECT Hx Asthma: No Hx Abnormal Chest X-Ray: No Hx Oxygen in Use at Home: No - Cardiovascular History Hx Hypertension: Yes Currently Uses Hypertension Medication: Yes Hx Arrhythmias: No Hx Palpitations: No Hx Chest Pain: No Hx Coronary Artery / Peripheral Vascular Disease: No Hx Blood Clot: No - Neurologic History Hx Cerebrovascular Accident: No Hx CT Scan Or MRI Of The Brain: No Hx Epilepsy, Convulsions, Seizures, Or Blackouts: No Hx Frequent Or Severe Headaches: No Hx Numbness: No Hx Neurologic Disorder: No - Dental History Current Dental Issues: None - Endocrine History Hx Diabetes: Yes Current Daily Insulin Injections: Yes Hx Thyroid Problems: No Endocrine History Comment: Pt takes Lantus at night and Lispro TID with meals. - Renal/Urologic History Hx Renal Disorders: No Hx Urinary Tract Problems: No - Liver History Hx Hepatic Disorders: No - Cancer History Hx Cancer: No - Hematology History Hx Unexplained Bleeding Of Any Type: No Hx Ease Of Bruising: No Hx Anemia: No - Gastrointestinal History Hx Gastroesophogeal Reflux Disease: No Hx Ulcers: No Hx Hiatal Hernia: No Hx Difficulty Swallowing: No - Musculoskeletal Hisory Hx Chronic Pain: No Hx Arthritis: No - Opthalmic History Hx Glaucoma: No Visual Assistive Devices: Glasses Hx Opthalmic Disorders: No - Other Health History Physical Disabililty: No Recent Cough, Cold, or Fever: No Significant Weight Loss In The Last 4 Months: No Possible the Patient Might be : No
--- NOTE | 2018-09-26 09:46 | PDECTPN ---
ECT Progress Note Patient Problems: Problems Problem Status Onset Code Severe major depression Acute F32.2 Date: 09/26/18 ECT provider: Krystian Serrano Anesthesia: Bella Mendenhall Stimulus dose (%): 40 Pulse width: 0.5 ECT EMG (sec): 35 ECT EEG (sec): 59 ECT treatment type: bilateral QIDS-SR Total Score: 16 QIDS-SR Question #12 Score: 0 MMSE Total Score (Max = 21): 19 Next ECT date: 09/28/18 Next ECT time: 07:00 Home medications: Medication Instructions Recorded Insulin Detemir [Levemir] 16 unit SQ HS 09/20/18 Insulin Lispro [Humalog] 0 unit SQ AC 09/20/18 Labetalol HCl [Trandate 100 mg (*)] 100 mg PO BID 09/20/18 Lurasidone HCl [Latuda] 80 mg PO DAILY@0800 09/20/18 Mirtazapine [Remeron] 15 mg PO HS 09/20/18 Simvastatin [Zocor] 40 mg PO HS 09/20/18 Sodium Bicarbonate [Na Bicarb 650 650 mg PO TID 09/20/18 MG (RX)] clonazePAM [Clonazepam] 1 mg PO BID 09/20/18 hydrOXYzine HCL [Vistaril 25MG] 25 mg PO Q4 PRN 09/20/18 Medication review: completed Current treatment plan: acute phase Treatment plan frequency: 3 times per week ECT narrative: Pt presents for continued ECT treatment. Weekend was uneventful, though she remains anxious. PO intake is suboptimal and she appears dehydrated. States she doesn't remember how she feels or how her last treatment went. She continues to pant and moan, c/o'ing of feeling anxious. Reportedly did better when her family visited over the WE, but was more anxious afterward. Anxious, panting, moaning. Affect is constricted, anxious, dysphoric. Mood is "bad." TP linear, though abbreviated. TC reveals somatic focus, no overt psychosis. Underwent bilateral ECT without complication.
--- NOTE | 2018-09-26 12:11 | ASMTCMCOM ---
CM Note CM Note Notes: CC was able to speak to client briefly during check-in. Client presents as anxious and tearful during conversation. Client rates her anxiety, 8/10, depression 8/10 while denying any S/I-H/I or AVH issues. Client suggests her sleep is "not good," and could use improving. Client is scheduled for ECT today (second session). Client remains hopeless and anxious through out the day. Date Signed: 09/26/2018 12:07 PM Electronically Signed By:Raúl Zafar
[2018-09-26] MEDS: FERROUS SULFATE 325 MG TAB PO SCH (12:44)
--- NOTE | 2018-09-26 14:16 | SOAPPROG ---
SOAP Progress Note Assessment/Plan: Assessment: Diabetes mellitus. Fastings continue high. Increased insulin glargine from 19 U and HS to 22 U at HS starting 09/24/2018. Observed patient to be highly anxious. Did not eat lunch. Scheduled lispro insulin was held. Would like to discuss initiating metformin but she is not in an appropriate mental state for discussion at present. Will continue to follow. 09/24/18 13:44 Discussed history of metformin use with primary care provider Dr. Diego. Metformin was discontinued due to renal insufficiency which was caused by combination of lithium and lisinopril. She had metabolic acidosis at the time and was begun on sodium bicarbonate. Dr. Jasiel WEBBER concurs that restarting metformin is indicated in order to reduce or prevent weight gain while on insulin and reduce insulin need. He also agrees as sodium bicarbonate is likely no longer necessary. Will initiate metformin at 250 mg p.o. Twice daily with meals. Will titrate if tolerated. Will discontinue sodium bicarbonate. 09/26/18 14:14 Subjective: Discussed restarting metformin. She is hesitant because she says it was discontinued in the hospital because of her kidney issues. She has me to speak with her primary care provider Dr. Obregon. Objective: Vital Signs Temp Pulse Resp BP Pulse Ox 36.6 C 66 12 157/80 H 94 09/26/18 09:46 09/26/18 12:18 09/26/18 12:18 09/26/18 12:18 09/26/18 12:18 Laboratory Results 09/21/18 13:10 09/25/18 09/26/18 09/27/18 05:59 05:59 05:59 Intake Total 500 Balance 500 ICD10 Worksheet Patient Problems: Problems Problem Status Onset Severe major depression Acute
--- NOTE | 2018-09-26 14:49 | ASMTBHFAM ---
Notes Note: Notes: HOC called requesting to speak. Fox [phone] CC left a message asking HOC to call back and provided CC's direct phone number Date Signed: 09/26/2018 02:48 PM Electronically Signed By:Amy Dozier
--- NOTE | 2018-09-26 15:27 | ASMTBHFAM ---
Notes Note: Notes: CC spoke with SHONDA Fox [phone] or [email or web address] SHONDA stated pt's current episode started at the beginning of the year. SHONDA stated they has been to multiple facilities and have been turned away from hospitals because pt is not suicidal. SHONDA stated it has been a "nightmare for the last year". SHONDA stated pt. did improve slightly on her old medications, but "it didn't hold". SHONDA stated at baseline pt "working, doing everything a normal person does". SHONDA stated pt's anxiety "went berserk on us". SHONDA stated pt. was upset prior to his visit on Wednesday, adding pt had "a massive wave of anxiety". SHONDA stated pt. has trouble focusing on anything currently. SHONDA stated pt. has never been violent. SHONDA stated pt. stated she wants to get better. SHONDA ask about follow up providers, and suggested [facility]. SHONDA stated he is seeking new providers for pt. SHONDA asked about having a family meeting prior to pt's discharge date. SHONDA asked to speak to Dr. Serrano whenever possible. Date Signed: 09/26/2018 03:26 PM Electronically Signed By:Amy Dozier
[2018-09-26] MEDS: metFORMIN HCL 500 MG TAB PO SCH (17:26)
[2018-09-26] MEDS: ATORVASTATIN CALCIUM 20 MG TAB PO SCH (20:25)
[2018-09-26] MEDS: INSULIN GLARGINE 100 UNITS/ML UNIT SC SCH (20:25)
[2018-09-27] MEDS: clonazePAM 0.5 MG TAB PO SCH ×2 (08:28→08:29)
[2018-09-27] MEDS: LURASIDONE HCL 80 MG TAB PO SCH (08:29)
[2018-09-27] MEDS: metFORMIN HCL 500 MG TAB PO SCH ×2 (08:30→17:53)
[2018-09-27] MEDS: INSULIN LISPRO 100 UNIT/ML SC SCH ×3 (08:31→17:52)
[2018-09-27] MEDS: LABETALOL HCL 100 MG TAB PO SCH ×2 (08:31→19:53)
[2018-09-27] MEDS: FERROUS SULFATE 325 MG TAB PO SCH (08:31)
--- NOTE | 2018-09-27 13:24 | ASMTCMCOM ---
CM Note CM Note Notes: Client remains the same on the unit. Client needs structure and redirection on the unit. Remains much the same, only two ECT treatments completed.* Date Signed: 09/27/2018 01:23 PM Electronically Signed By:Raúl Zafar
--- NOTE | 2018-09-27 14:16 | SOAPPROG ---
SOAP Progress Note Assessment/Plan: Assessment: Plan: 09/27/18 14:17 Mood: Early objective improvement. [facility]. Subjective: Pt seen, discussed with staff. Spoke with patient's Fox for 30" via phone. Pt reports feeling "a little less anxious." Appears calmer. Talked for extended period of time without gasping or moaning. has appropriate expectations for treatment stating, "She's been really sick for a long time" and not expecting an overnight change. I assured him that I did expect positive change, however, and likely return to premorbid level of functioning. I discussed this with patient today as well. Asked her to try to be patient and allow us to help her while expecting to improve. Objective: Vital Signs Temp Pulse Resp BP Pulse Ox 36.6 C 77 12 112/65 94 09/26/18 09:46 09/26/18 20:25 09/26/18 12:18 09/26/18 20:25 09/26/18 12:18 Laboratory Results 09/21/18 13:10 09/26/18 09/27/18 09/28/18 05:59 05:59 05:59 Intake Total 500 Balance 500 MSE: Calmer, though remains notably anxious. Affect is constricted, anxious. Mood is "bad." TP linear, less perseverative. TC reveals no psychosis, less somatic focus. Denies SI, may be more hopeful. - Time Spent With Patient Time Spent With Patient: 55" ICD10 Worksheet Patient Problems: Problems Problem Status Onset Severe major depression Acute
[2018-09-27] MEDS: ATORVASTATIN CALCIUM 20 MG TAB PO SCH (19:53)
[2018-09-27] MEDS: INSULIN GLARGINE 100 UNITS/ML UNIT SC SCH (20:02)
[2018-09-28] MEDS ORDERED: CITRIC ACID/SODIUM CITRATE 30 ML UDCUP PO PRN (04:00)
[2018-09-28] MEDS ORDERED: ONDANSETRON DISINTEGRATING 4 MG TAB PO PRN (04:00)
[2018-09-28] MEDS ORDERED: THEOPHYLLINE ORAL SOLUTION 80 MG/15 ML UDCUP PO ONE (04:00)
[2018-09-28] MEDS ORDERED: NS 1,000 ML IV PRN (04:00)
[2018-09-28] MEDS ORDERED: fentaNYL 100 MCG/2 ML INJ ONE (06:39)
[2018-09-28] MEDS ORDERED: LABETALOL HCL 5 MG/ML 20 ML MDV ONE (06:39)
[2018-09-28] MEDS ORDERED: MIDAZOLAM 2 MG/2 ML VIAL ONE (06:39)
[2018-09-28] MEDS ORDERED: METHOHEXITAL SODIUM 100 MG/10 ML SYR IVP ONE (06:40)
[2018-09-28] MEDS ORDERED: CITRIC ACID/SODIUM CITRATE 30 ML UDCUP ONE (06:45)
[2018-09-28] MEDS ORDERED: ONDANSETRON DISINTEGRATING 4 MG TAB ONE (06:45)
[2018-09-28] MEDS: NS 1,000 ML IV PRN (06:46)
--- NOTE | 2018-09-28 07:13 | POSTANESTH ---
Post Anesthetic Evaluation Cardiovascular Status: Normal, Stable Respiratory Status: Normal, Stable Level of Consciousness/Mental Status: Can Participate in Eval, Mildly Sleepy, Arousable Pain Control: Adequate, Prn Tx Ordered Nausea/Vomiting Control: Adequate, Prn Tx Ordered Complications Possibly Related to Anesthesia: None Noted (No FENTON at this time. IV pulled out during pt transfer, so pt lisa received 500 mL IVF.)
--- NOTE | 2018-09-28 07:13 | PDHPUP ---
History & Physical Update H&P update statement: This history and physical update is based on an assessment of the patient which was completed after admission or registration (within 24 hours), but prior to the surgery/procedure. H&P update: H&P reviewed & patient examined, no change in patient's condition since H&P completed (No changes since Wednesday.)
--- NOTE | 2018-09-28 07:16 | PDECTPN ---
ECT Progress Note Patient Problems: Problems Problem Status Onset Code Severe major depression Acute F32.2 Date: 09/28/18 ECT provider: Krystian Serrano Anesthesia: Bella Mendenhall Stimulus dose (%): 45 Pulse width: 0.5 ECT EMG (sec): 32 ECT EEG (sec): 48 ECT treatment type: bilateral QIDS-SR Total Score: 9 QIDS-SR Question #12 Score: 0 MMSE Total Score (Max = 21): 17 Next ECT date: 09/30/18 Next ECT time: 07:00 Home medications: Medication Instructions Recorded Insulin Detemir [Levemir] 16 unit SQ HS 09/20/18 Insulin Lispro [Humalog] 0 unit SQ AC 09/20/18 Labetalol HCl [Trandate 100 mg (*)] 100 mg PO BID 09/20/18 Lurasidone HCl [Latuda] 80 mg PO DAILY@0800 09/20/18 Mirtazapine [Remeron] 15 mg PO HS 09/20/18 Simvastatin [Zocor] 40 mg PO HS 09/20/18 Sodium Bicarbonate [Na Bicarb 650 650 mg PO TID 09/20/18 MG (RX)] clonazePAM [Clonazepam] 1 mg PO BID 09/20/18 hydrOXYzine HCL [Vistaril 25MG] 25 mg PO Q4 PRN 09/20/18 Medication review: completed Current treatment plan: acute phase Treatment plan frequency: 3 times per week ECT narrative: Pt presents for continued acute course ECT treatment. She remains generally anxious, worried, though appears brighter and more interactive this morning. Actually smiles and responds to humor. Does not say she is afraid. No panting or moaning. Affect is brighter, better modulated. Mood is "still depressed." TP linear, much more spontaneous and fluent. TC reveals less somatic focus, no overt psychosis. Underwent bilateral ECT without complication. CCM.
[2018-09-28] MEDS: LURASIDONE HCL 80 MG TAB PO SCH (08:51)
[2018-09-28] MEDS: LABETALOL HCL 100 MG TAB PO SCH ×2 (08:51→19:00)
[2018-09-28] MEDS: FERROUS SULFATE 325 MG TAB PO SCH (08:52)
[2018-09-28] MEDS: clonazePAM 0.5 MG TAB PO SCH ×2 (10:21→19:00)
[2018-09-28] MEDS: INSULIN LISPRO 100 UNIT/ML SC SCH ×3 (11:39→16:40)
--- NOTE | 2018-09-28 11:56 | ASMTCMCOM ---
CM Note CM Note Notes: Pt. reports feeling "much better". Pt. stated "ECT went well". Pt. stated she slept "really well". Pt. stated she is eating well and has no issues with her current medications. Pt. stated she is attending groups, adding "they haven't been stimulating". Pt. report no other issues while on the unit. Pt. stated "morning are good", adding "early ECT is a good idea". Pt. stated she hasn't had a job since December and her mother in June. Pt. was unable to think of anything that is distracting for her. Pt. denied SI, HI, AVH and paranoia. Pt. presents as alert, calm, cooperative, good eye contact, and a mostly pleasant demeanor. Staff report pt. sleeping 9.5 hours and being medication compliant. Pt. is scheduled for ECT on Wednesday09/30/18. Date Signed: 09/28/2018 11:55 AM Electronically Signed By:Amy Dozier
[2018-09-28] MEDS: metFORMIN HCL 500 MG TAB PO SCH ×2 (12:00→16:44)
[2018-09-28] MEDS: LORazepam 0.5 MG TAB PO PRN (16:43)
[2018-09-28] MEDS: ATORVASTATIN CALCIUM 20 MG TAB PO SCH (18:59)
[2018-09-28] MEDS: INSULIN GLARGINE 100 UNITS/ML UNIT SC SCH (19:10)
[2018-09-29] MEDS: INSULIN LISPRO 100 UNIT/ML SC SCH ×3 (08:22→17:06)
[2018-09-29] MEDS: LURASIDONE HCL 80 MG TAB PO SCH (08:48)
[2018-09-29] MEDS: metFORMIN HCL 500 MG TAB PO SCH ×2 (08:48→17:01)
[2018-09-29] MEDS: LABETALOL HCL 100 MG TAB PO SCH ×2 (08:48→18:53)
[2018-09-29] MEDS: clonazePAM 0.5 MG TAB PO SCH (08:48)
[2018-09-29] MEDS: FERROUS SULFATE 325 MG TAB PO SCH (08:49)
--- NOTE | 2018-09-29 09:25 | SOAPPROG ---
SOAP Progress Note Assessment/Plan: Assessment: Plan: 09/27/18 14:17 Mood: Early objective improvement. CCM. 09/29/18 09:39 Mood: Continued gradual improvement. CCM. Subjective: Pt seen, discussed with staff. Reports feeling calmer yesterday afternoon. Enjoyed visit with H and D, but became dramatically upset when they left. H brought a large amount of food for her from home. She reports feeling "bad" today, but is sitting calmly in the dayroom watching the [employer] parade. No h/a or nausea. Objective: Vital Signs Temp Pulse Resp BP Pulse Ox 36.6 C 72 20 141/70 H 93 09/28/18 10:30 09/29/18 08:48 09/29/18 06:00 09/29/18 08:48 09/29/18 06:00 Laboratory Results 09/21/18 13:10 09/28/18 09/29/18 09/30/18 05:59 05:59 05:59 Intake Total 525 Balance 525 MSE: Moderately anxious, coop and interactive. Affect is blunted, stable. Mood is "bad." TP is linear. TC reveals no overt psychosis. - Time Spent With Patient Time Spent With Patient: 15" ICD10 Worksheet Patient Problems: Problems Problem Status Onset Severe major depression Acute
--- NOTE | 2018-09-29 11:22 | ASMTCMCOM ---
CM Note CM Note Notes: Pt. reported she "woke up fine", but was currently struggling with feelings of panic. CC walked pt thought deep breathing skills and attempted to distract pt. Pt. stated HOC "brought good stuff", adding she has turkey and stuffing available. Pt. stated she had ECT yesterday, and "got hard in the afternoon", adding she "started to panic". Pt. struggled with shallow breathing while working with CC. CC left when RN arrived with medication for pt. Pt. was later observed utilizing the rain stick to help keep herself calmer. Staff report pt. sleeping 12 hours and being medication compliant. Pt. is scheduled for ECT on Wednesday at 0700. Date Signed: 09/29/2018 11:21 AM Electronically Signed By:Amy Dozier
[2018-09-29] MEDS ORDERED: clonazePAM 1 MG TAB ONE (16:55)
[2018-09-29] MEDS: LORazepam 0.5 MG TAB PO PRN (16:58)
[2018-09-29] MEDS: ATORVASTATIN CALCIUM 20 MG TAB PO SCH (21:51)
[2018-09-29] MEDS: INSULIN GLARGINE 100 UNITS/ML UNIT SC SCH (21:51)
[2018-09-30] MEDS ORDERED: ONDANSETRON DISINTEGRATING 4 MG TAB PO PRN (05:00)
[2018-09-30] MEDS ORDERED: THEOPHYLLINE ORAL SOLUTION 80 MG/15 ML UDCUP PO ONE (05:00)
[2018-09-30] MEDS ORDERED: NS 1,000 ML IV PRN (05:00)
[2018-09-30] MEDS ORDERED: CITRIC ACID/SODIUM CITRATE 30 ML UDCUP PO PRN (05:00)
[2018-09-30] MEDS ORDERED: CITRIC ACID/SODIUM CITRATE 30 ML UDCUP ONE (06:40)
[2018-09-30] MEDS ORDERED: ONDANSETRON DISINTEGRATING 4 MG TAB ONE (06:40)
[2018-09-30] MEDS: NS 1,000 ML IV PRN (06:41)
[2018-09-30] MEDS ORDERED: fentaNYL 100 MCG/2 ML INJ ONE (07:11)
[2018-09-30] MEDS ORDERED: MIDAZOLAM 2 MG/2 ML VIAL ONE (07:11)
[2018-09-30] MEDS ORDERED: SUCCINYLCHOLINE CHLORIDE 200 MG/10 ML VIAL ONE (07:12)
[2018-09-30] MEDS ORDERED: LABETALOL HCL 5 MG/ML 20 ML MDV ONE (07:12)
[2018-09-30] MEDS ORDERED: ONDANSETRON 4 MG/2 ML VIAL ONE (07:12)
[2018-09-30] MEDS ORDERED: PROPOFOL 200 MG/20 ML VIAL ONE (07:12)
[2018-09-30] MEDS ORDERED: GLYCOPYRROLATE 0.2 MG/1 ML VIAL ONE (07:12)
[2018-09-30] MEDS ORDERED: ROCURONIUM 50 MG/5 ML VIAL ONE (07:12)
[2018-09-30] MEDS ORDERED: LIDOCAINE 2% 5 ML SDV ONE (07:17)
[2018-09-30] MEDS ORDERED: METHOHEXITAL SODIUM 100 MG/10 ML SYR IVP ONE (07:17)
--- NOTE | 2018-09-30 07:24 | PDECTPN ---
ECT Progress Note Patient Problems: Problems Problem Status Onset Code Severe major depression Acute F32.2 Date: 09/30/18 ECT provider: Krystian Serrano Anesthesia: Huy Sidhu Stimulus dose (%): 50 Pulse width: 0.5 ECT EMG (sec): 42 ECT EEG (sec): 48 ECT treatment type: bilateral QIDS-SR Total Score: 12 QIDS-SR Question #12 Score: 0 MMSE Total Score (Max = 21): 16 Next ECT date: 10/03/18 Next ECT time: 06:30 Home medications: Medication Instructions Recorded Insulin Detemir [Levemir] 16 unit SQ HS 09/20/18 Insulin Lispro [Humalog] 0 unit SQ AC 09/20/18 Labetalol HCl [Trandate 100 mg (*)] 100 mg PO BID 09/20/18 Lurasidone HCl [Latuda] 80 mg PO DAILY@0800 09/20/18 Mirtazapine [Remeron] 15 mg PO HS 09/20/18 Simvastatin [Zocor] 40 mg PO HS 09/20/18 Sodium Bicarbonate [Na Bicarb 650 650 mg PO TID 09/20/18 MG (RX)] clonazePAM [Clonazepam] 1 mg PO BID 09/20/18 hydrOXYzine HCL [Vistaril 25MG] 25 mg PO Q4 PRN 09/20/18 Medication review: completed Current treatment plan: acute phase Treatment plan frequency: 3 times per week ECT narrative: Pt presents for continued acute course ECT treatment. She reports feeling better today! Not wearing her ball cap down over her eyes and face. Interactive and pleasant. States she is hopeful she will continue to improve. No panting or moaning. Affect is brighter, better modulated. Mood is "better. " TP linear. TC reveals less somatic focus, no overt psychosis. Underwent bilateral ECT without complication. CCM.
--- NOTE | 2018-09-30 08:29 | PDANEPAE ---
ECT Pre Anesthetic Evaluation Allergies/Adverse Reactions: No Known Allergies Allergy (Unverified 09/20/18 21:24) Patient ID confirmed: Yes H&P reviewed: Yes Pre-anesthetic history reviewed: Yes Heart: regular rate and rhythym Lungs: reduced air movement Mallampati Score: Class 2 ASA Status: III Home Medications: Medication Instructions Recorded Insulin Detemir [Levemir] 16 unit SQ HS 09/20/18 Insulin Lispro [Humalog] 0 unit SQ AC 09/20/18 Labetalol HCl [Trandate 100 mg (*)] 100 mg PO BID 09/20/18 Lurasidone HCl [Latuda] 80 mg PO DAILY@0800 09/20/18 Mirtazapine [Remeron] 15 mg PO HS 09/20/18 Simvastatin [Zocor] 40 mg PO HS 09/20/18 Sodium Bicarbonate [Na Bicarb 650 650 mg PO TID 09/20/18 MG (RX)] clonazePAM [Clonazepam] 1 mg PO BID 09/20/18 hydrOXYzine HCL [Vistaril 25MG] 25 mg PO Q4 PRN 09/20/18 Medication review: completed Patient interviewed: Yes Patient examined: Yes Anesthetic plan discussed with patient: Yes Anesthetic risks discussed with patient: Yes ECT Pre-Anesthetic History - Height & Weight Height: 152.4 cm Weight: 103.873 kg BMI: 44.72 - Anesthesia History Hx Anesthesia Complications (with details): None Family Hx Anesthesia Complications: None - Medications In the Past 6 Months the Patient Has Taken: Insulin, Blood Pressure Medication - Tobacco/Alcohol/Drug Use Smoking Status: Never smoked Hx Drug/Substance Abuse: No Alcohol Use: No - Prior Surgeries/Hospitalizations Prior Surgeries: Ileostomy, unsure what year. Prior Medical Hospitalizations: Patient unsure, besides ileostomy surgery. - Pulmonary History ECT Hx Asthma: No Hx Abnormal Chest X-Ray: No Hx Oxygen in Use at Home: No - Cardiovascular History Hx Hypertension: Yes Currently Uses Hypertension Medication: Yes Hx Arrhythmias: No Hx Palpitations: No Hx Chest Pain: No Hx Coronary Artery / Peripheral Vascular Disease: No Hx Blood Clot: No - Neurologic History Hx Cerebrovascular Accident: No Hx CT Scan Or MRI Of The Brain: No Hx Epilepsy, Convulsions, Seizures, Or Blackouts: No Hx Frequent Or Severe Headaches: No Hx Numbness: No Hx Neurologic Disorder: No - Dental History Current Dental Issues: None - Endocrine History Hx Diabetes: Yes Current Daily Insulin Injections: Yes Hx Thyroid Problems: No Endocrine History Comment: Pt takes Lantus at night and Lispro TID with meals. - Renal/Urologic History Hx Renal Disorders: No Hx Urinary Tract Problems: No - Liver History Hx Hepatic Disorders: No - Cancer History Hx Cancer: No - Hematology History Hx Unexplained Bleeding Of Any Type: No Hx Ease Of Bruising: No Hx Anemia: No - Gastrointestinal History Hx Gastroesophogeal Reflux Disease: No Hx Ulcers: No Hx Hiatal Hernia: No Hx Difficulty Swallowing: No - Musculoskeletal Hisory Hx Chronic Pain: No Hx Arthritis: No - Opthalmic History Hx Glaucoma: No Visual Assistive Devices: Glasses Hx Opthalmic Disorders: No - Other Health History Physical Disabililty: No Recent Cough, Cold, or Fever: No Significant Weight Loss In The Last 4 Months: No Possible the Patient Might be : No
--- NOTE | 2018-09-30 08:42 | POSTANESTH ---
Post Anesthetic Evaluation Cardiovascular Status: Similar to Pre-Op Cond Respiratory Status: Similar to Pre-op Cond. Level of Consciousness/Mental Status: Can Participate in Eval Pain Control: Adequate, Prn Tx Ordered Nausea/Vomiting Control: Adequate, Prn Tx Ordered Complications Possibly Related to Anesthesia: None Noted
[2018-09-30] MEDS: LURASIDONE HCL 80 MG TAB PO SCH (08:53)
[2018-09-30] MEDS: LABETALOL HCL 100 MG TAB PO SCH ×2 (08:53→20:11)
[2018-09-30] MEDS: metFORMIN HCL 500 MG TAB PO SCH ×2 (08:54→16:51)
[2018-09-30] MEDS: FERROUS SULFATE 325 MG TAB PO SCH (08:54)
[2018-09-30] MEDS: clonazePAM 0.5 MG TAB PO SCH ×2 (09:02→20:11)
--- NOTE | 2018-09-30 09:25 | ASMTCMCOM ---
CM Note CM Note Notes: Client presents well on the unit, less anxious than previous days; however, this observation was made after client's ECT. Client was sitting in a chair on the unit; while denying any feelings of anxiety or depression, etc.* Overall, client was more interactive than previous days; while presenting with increased appropriate affect towards situation.* Date Signed: 09/30/2018 09:24 AM Electronically Signed By:Raúl Zafar
[2018-09-30] MEDS: INSULIN LISPRO 100 UNIT/ML SC SCH ×3 (10:09→16:45)
[2018-09-30] MEDS: LORazepam 0.5 MG TAB PO PRN (12:51)
[2018-09-30] MEDS: ATORVASTATIN CALCIUM 20 MG TAB PO SCH (20:10)
[2018-09-30] MEDS: INSULIN GLARGINE 100 UNITS/ML UNIT SC SCH (20:18)
[2018-10-01] MEDS: FERROUS SULFATE 325 MG TAB PO SCH (08:15)
[2018-10-01] MEDS: clonazePAM 0.5 MG TAB PO SCH ×2 (08:16→19:38)
[2018-10-01] MEDS: LURASIDONE HCL 80 MG TAB PO SCH (08:16)
[2018-10-01] MEDS: LABETALOL HCL 100 MG TAB PO SCH ×2 (08:16→19:39)
[2018-10-01] MEDS: metFORMIN HCL 500 MG TAB PO SCH ×2 (08:16→16:44)
[2018-10-01] MEDS: INSULIN LISPRO 100 UNIT/ML SC SCH ×3 (09:37→16:44)
--- NOTE | 2018-10-01 10:59 | SOAPPROG ---
SOAP Progress Note Assessment/Plan: Assessment: 48yo CF with major depr d/o, recurrent, severe without psychosis, with treatment resistant features, possible generalized anxiety d/o and multiple medical problems including Crohn's dz, type 2 DM, obesity, DIALLO with signif decline in functioning and multiple admissions over the past year now admitted for acute course of ECT 10/01/18 15:49 slept 9.5 hrs. was observed calm in milieu, watching TV, but became increasingly anxious with attempts to engage in interview. pt responded "I'm not sure" regarding how she is feeling, and "It's possible" regarding some improvement in symptoms with ECT. denied physical complaints or s /e to meds or any adverse effects from ECT. casually dressed, sitting on sofa chair, fair eye contact, nml vol and rate speech, affect initially calm but increasingly anxious and began to hyperventilate and make soft moaning sounds, not redirectable to try and calm with any coaching to control breathing. seemed to calm once interview terminated. did not report any SI. did not appear responding to internal stim. noted other times of day sitting calmly in milieu in no physical distress. PLAN: cont ECT as scheduled continue current meds Objective: Vital Signs Temp Pulse Resp BP Pulse Ox 36.4 C 60 20 121/60 H 91 L 09/30/18 10:45 10/01/18 08:16 10/01/18 06:00 10/01/18 08:16 10/01/18 06:00 Laboratory Results 09/21/18 13:10 09/30/18 10/01/18 10/02/18 05:59 05:59 05:59 Intake Total 900 Balance 900 - Time Spent With Patient Time Spent With Patient: <15min - Pending Discharge Pending Discharge Within 24 Hours: No Pending Discharge Within 48 Hours: No ICD10 Worksheet Patient Problems: Problems Problem Status Onset Severe major depression Acute
--- NOTE | 2018-10-01 13:14 | ASMTCMCOM ---
CM Note CM Note Notes: Pt. reports feeling "tired". Pt. stated she slept "pretty good". Pt. reports eating well and attending groups but "don't really like any of them". Pt. reports no issues with her current medications. Pt. stated she "can't calm down". CC did some breathing exercises with pt. Pt. denied SI, HI, AVH and paranoia. Pt. stated she doesn't have any goals for the day. Pt. presents as alert, anxious, shallow breathing, lacking eye contact, and mostly cooperative. Staff report pt. sleeping 9.5 hours and being medication compliant. Date Signed: 10/01/2018 01:13 PM Electronically Signed By:Amy Dozier
[2018-10-01] MEDS: LORazepam 0.5 MG TAB PO PRN (16:44)
[2018-10-01] MEDS: ATORVASTATIN CALCIUM 20 MG TAB PO SCH (19:38)
[2018-10-01] MEDS: INSULIN GLARGINE 100 UNITS/ML UNIT SC SCH (19:57)
[2018-10-02] MEDS ORDERED: THEOPHYLLINE ORAL SOLUTION 80 MG/15 ML UDCUP PO ONE (04:00)
[2018-10-02] MEDS: INSULIN LISPRO 100 UNIT/ML SC SCH ×3 (08:52→18:19)
[2018-10-02] MEDS: metFORMIN HCL 500 MG TAB PO SCH ×2 (08:53→16:58)
[2018-10-02] MEDS: clonazePAM 0.5 MG TAB PO SCH ×2 (08:53→20:26)
[2018-10-02] MEDS: LABETALOL HCL 100 MG TAB PO SCH ×2 (08:53→18:12)
[2018-10-02] MEDS: LURASIDONE HCL 80 MG TAB PO SCH (08:53)
[2018-10-02] MEDS: FERROUS SULFATE 325 MG TAB PO SCH (08:53)
--- NOTE | 2018-10-02 10:11 | SOAPPROG ---
SOAP Progress Note Assessment/Plan: Assessment: 48yo CF with major depr d/o, recurrent, severe without psychosis, with treatment resistant features, possible generalized anxiety d/o and multiple medical problems including Crohn's dz, type 2 DM, obesity, DIALLO with signif decline in functioning and multiple admissions over the past year now admitted for acute course of ECT 10/01/18 15:49 slept 9.5 hrs. was observed calm in milieu, watching TV, but became increasingly anxious with attempts to engage in interview. pt responded "I'm not sure" regarding how she is feeling, and "It's possible" regarding some improvement in symptoms with ECT. denied physical complaints or s /e to meds or any adverse effects from ECT. casually dressed, sitting on sofa chair, fair eye contact, nml vol and rate speech, affect initially calm but increasingly anxious and began to hyperventilate and make soft moaning sounds, not redirectable to try and calm with any coaching to control breathing. seemed to calm once interview terminated. did not report any SI. did not appear responding to internal stim. noted other times of day sitting calmly in milieu in no physical distress. PLAN: cont ECT as scheduled continue current meds 10/02/18 13:09 slept 10hr. staff noting improved clinically with less anxiety, but later morning she was experiencing panic attack symptoms again. Fox visited. Pt took prn ativan. Seems pt may have experienced mild orthostatic sxs and c/o feeling "dizzy" which may have triggered anxiety earlier this AM. reports hx of dehydration. Pt has been encouraged to incr po fluids today. Unable to draw labs. orthostatic VS checked this afternoon, unremarkable. Has been hydrating more today. on interview this afternoon, pt was more calm, able to communicate without anxiety or hyperventilation. kedar Larry visited. states mood is "quiet". affect restricted. denied psychotic sxs or any SI. Plan: cont current meds. consider check Chem panel if still indicated when has IV access for ECT. cont to encourage hydration. monitor c/o dizziness. is also on meds for BP, and klonopin ECT in am as scheduled Objective: Vital Signs Temp Pulse Resp BP Pulse Ox 36.3 C 64 20 145/74 H 93 10/02/18 06:00 10/02/18 08:53 10/02/18 06:00 10/02/18 08:53 10/02/18 06:00 Laboratory Results 09/21/18 13:10 10/01/18 10/02/18 10/03/18 05:59 05:59 05:59 Intake Total 900 Balance 900 - Time Spent With Patient Time Spent With Patient: 15min - Pending Discharge Pending Discharge Within 24 Hours: No Pending Discharge Within 48 Hours: No ICD10 Worksheet Patient Problems: Problems Problem Status Onset Severe major depression Acute
[2018-10-02] MEDS: LORazepam 0.5 MG TAB PO PRN ×2 (11:50→16:58)
--- NOTE | 2018-10-02 12:36 | ASMTCMCOM ---
CM Note CM Note Notes: Pt. reports feeling "okay". Pt. stated she slept "pretty well, fell asleep thank goodness". Pt. stated she is eating well and received her specific food items. Pt. stated she "didn't really go to [facility]", adding "groups here seem to be half done". Pt. stated no issues with her current medications, stating "not that I know of". Pt. stated she has three more ECT treatments and then can decide if she wants to do ECT from home. Pt. denied SI, HI, AVH and paranoia. Pt. asked CC "are we safe with everyone on the unit" after a peer pt became loud. Pt. presents as alert, anxious, scared, poor eye contact today, and cooperative. Staff report pt. sleeping 9 hours and being medication compliant. Pt. is scheduled for ECT at 0630 tomorrow morning. Date Signed: 10/02/2018 12:35 PM Electronically Signed By:Amy Dozier
[2018-10-02] MEDS: ACETAMINOPHEN 325 MG TAB PO PRN (13:38)
[2018-10-02] MEDS: INSULIN GLARGINE 100 UNITS/ML UNIT SC SCH (19:53)
[2018-10-02] MEDS: ATORVASTATIN CALCIUM 20 MG TAB PO SCH (19:54)
[2018-10-02] MEDS: MELATONIN 3 MG TAB PO PRN (23:31)
[2018-10-03] MEDS ORDERED: THEOPHYLLINE ORAL SOLUTION 80 MG/15 ML UDCUP PO ONE (04:00)
[2018-10-03] MEDS: NS 1,000 ML IV PRN ×2 (06:05→06:27)
[2018-10-03] MEDS ORDERED: ONDANSETRON DISINTEGRATING 4 MG TAB ONE (06:08)
[2018-10-03] MEDS ORDERED: CITRIC ACID/SODIUM CITRATE 30 ML UDCUP ONE (06:09)
[2018-10-03] MEDS ORDERED: ONDANSETRON DISINTEGRATING 4 MG TAB PO PRN (06:16)
[2018-10-03] MEDS ORDERED: CITRIC ACID/SODIUM CITRATE 30 ML UDCUP PO PRN (06:16)
[2018-10-03] MEDS ORDERED: NS 1,000 ML IV PRN (06:16)
[2018-10-03] MEDS ORDERED: SUCCINYLCHOLINE CHLORIDE 200 MG/10 ML VIAL ONE (06:21)
[2018-10-03] MEDS ORDERED: MIDAZOLAM 2 MG/2 ML VIAL ONE (06:33)
[2018-10-03] MEDS ORDERED: fentaNYL 100 MCG/2 ML INJ ONE (06:33)
[2018-10-03] MEDS ORDERED: ROCURONIUM 50 MG/5 ML VIAL ONE (06:34)
[2018-10-03] MEDS ORDERED: GLYCOPYRROLATE 0.2 MG/1 ML VIAL ONE (06:34)
[2018-10-03] MEDS ORDERED: ONDANSETRON 4 MG/2 ML VIAL ONE (06:34)
[2018-10-03] MEDS ORDERED: METHOHEXITAL SODIUM 100 MG/10 ML SYR IVP ONE (06:34)
[2018-10-03] MEDS ORDERED: PROPOFOL 200 MG/20 ML VIAL ONE (06:34)
--- NOTE | 2018-10-03 06:58 | PDECTPN ---
ECT Progress Note Patient Problems: Problems Problem Status Onset Code Severe major depression Acute F32.2 Date: 10/03/18 ECT provider: Krystian Serrano Anesthesia: Huy Sidhu Stimulus dose (%): 55 Pulse width: 0.5 ECT EMG (sec): 20 ECT EEG (sec): 50 ECT treatment type: bilateral QIDS-SR Total Score: 11 QIDS-SR Question #12 Score: 0 MMSE Total Score (Max = 21): 21 Next ECT date: 10/05/18 Next ECT time: 08:30 Home medications: Medication Instructions Recorded Insulin Detemir [Levemir] 16 unit SQ HS 09/20/18 Insulin Lispro [Humalog] 0 unit SQ AC 09/20/18 Labetalol HCl [Trandate 100 mg (*)] 100 mg PO BID 09/20/18 Lurasidone HCl [Latuda] 80 mg PO DAILY@0800 09/20/18 Mirtazapine [Remeron] 15 mg PO HS 09/20/18 Simvastatin [Zocor] 40 mg PO HS 09/20/18 Sodium Bicarbonate [Na Bicarb 650 650 mg PO TID 09/20/18 MG (RX)] clonazePAM [Clonazepam] 1 mg PO BID 09/20/18 hydrOXYzine HCL [Vistaril 25MG] 25 mg PO Q4 PRN 09/20/18 Current treatment plan: acute phase Treatment plan frequency: 3 times per week ECT narrative: Pt presents for continued acute course ECT treatment. Did well over weekend by staff report. She states it was uneventful. C/o feeling dizzy and BMP was ordered. Staff unable to draw. Anesthesia unable to draw in ECT through IV due to small vein. No c/o's today No panting or moaning. Affect is blunted though better modulated overal. Mood is "better." TP linear. TC reveals less somatic focus, no overt psychosis. Underwent bilateral ECT without complication. CCM.
[2018-10-03] MEDS: INSULIN LISPRO 100 UNIT/ML SC SCH ×3 (08:14→17:58)
[2018-10-03] MEDS: LURASIDONE HCL 80 MG TAB PO SCH (08:32)
[2018-10-03] MEDS: FERROUS SULFATE 325 MG TAB PO SCH (08:32)
[2018-10-03] MEDS: clonazePAM 0.5 MG TAB PO SCH ×2 (08:32→19:57)
[2018-10-03] MEDS: LABETALOL HCL 100 MG TAB PO SCH ×2 (08:36→19:57)
[2018-10-03] MEDS: metFORMIN HCL 500 MG TAB PO SCH ×2 (08:36→18:00)
--- NOTE | 2018-10-03 12:05 | ASMTCMCOM ---
CM Note CM Note Notes: CC confirmed with HOC (Fox) at ; a family meeting set for tomorrrow at 11:30am via phone with provider, client and CC. Date Signed: 10/03/2018 12:03 PM Electronically Signed By:Raúl Zafar
[2018-10-03] MEDS: ATORVASTATIN CALCIUM 20 MG TAB PO SCH (19:57)
[2018-10-03] MEDS: INSULIN GLARGINE 100 UNITS/ML UNIT SC SCH (20:01)
[2018-10-04] MEDS: LURASIDONE HCL 80 MG TAB PO SCH (08:54)
[2018-10-04] MEDS: clonazePAM 0.5 MG TAB PO SCH ×2 (08:54→17:51)
[2018-10-04] MEDS: FERROUS SULFATE 325 MG TAB PO SCH (08:55)
[2018-10-04] MEDS: metFORMIN HCL 500 MG TAB PO SCH ×2 (08:55→17:34)
[2018-10-04] MEDS: LABETALOL HCL 100 MG TAB PO SCH ×2 (08:55→19:12)
[2018-10-04] MEDS: INSULIN LISPRO 100 UNIT/ML SC SCH ×3 (09:25→17:33)
[2018-10-04] MEDS: LORazepam 0.5 MG TAB PO PRN (10:42)
--- NOTE | 2018-10-04 12:06 | ASMTBHFAM ---
Notes Note: Notes: Completed family meeting with HOC by phone with client and provider. Would like client to stay through weekend to run course of ECT and see increased markers of improvement. HOC, would like CC and provider to contact PCP (Dr. Bowser) for follow up and HOC will contact [facility] ([facility]) for expanded mental health services post hospitalization. Date Signed: 10/04/2018 12:05 PM Electronically Signed By:Raúl Zafar
--- NOTE | 2018-10-04 16:17 | SOAPPROG ---
SOARCELIA Progress Note Assessment/Plan: Assessment: Plan: 09/27/18 14:17 Mood: Early objective improvement. [facility]. 09/29/18 09:39 Mood: Continued gradual improvement. [facility]. 10/04/18 16:18 Mood: Some regression. More anxious and dysphoric today. Will CCM inc: acute course ECT. Subjective: Pt seen, discussed with staff. Reports feeling "really anxious" today. States repeatedly, "I just woke up anxious, I don't know why." Persistent panting and moaning returned. I asked if it was linked to the scheduled family meeting today and she states she doesn't know. She participated in family meeting with myself, CC, and H. She had little to add except to repeat the phrase about waking up anxious and state, "I don't feel good." H states he does not believe he can care for her at home at this point. Pt states she cannot care for herself at home. I reviewed course of treatment and my impression that she is improving with a bit of a regression over the past few days. I also nicole a correlation between contact with family and increased anxiety and regression. Objective: Vital Signs Temp Pulse Resp BP Pulse Ox 36.4 C 63 15 132/63 H 95 10/03/18 10:00 10/04/18 08:55 10/04/18 06:00 10/04/18 08:55 10/04/18 06:00 Laboratory Results 09/21/18 13:10 10/03/18 10/04/18 10/05/18 05:59 05:59 05:59 Intake Total 250 Balance 250 MSE: Poorly groomed, anxious, panting, moaning. Affect is dysphoric, anxious, restricted. Mood is "bad." TP is abbreviated, perseverating on negative themes. - Time Spent With Patient Time Spent With Patient: 55" ICD10 Worksheet Patient Problems: Problems Problem Status Onset Severe major depression Acute
[2018-10-04] MEDS: INSULIN GLARGINE 100 UNITS/ML UNIT SC SCH (19:11)
[2018-10-04] MEDS: MELATONIN 3 MG TAB PO PRN (19:11)
[2018-10-04] MEDS: ATORVASTATIN CALCIUM 20 MG TAB PO SCH (19:12)
[2018-10-05] MEDS ORDERED: ONDANSETRON DISINTEGRATING 4 MG TAB PO PRN (04:00)
[2018-10-05] MEDS ORDERED: NS 1,000 ML IV PRN (04:00)
[2018-10-05] MEDS ORDERED: CITRIC ACID/SODIUM CITRATE 30 ML UDCUP PO PRN (04:00)
[2018-10-05] MEDS ORDERED: THEOPHYLLINE ORAL SOLUTION 80 MG/15 ML UDCUP PO ONE (04:00)
[2018-10-05] MEDS: LABETALOL HCL 100 MG TAB PO SCH ×2 (06:25→19:23)
[2018-10-05] MEDS: metFORMIN HCL 500 MG TAB PO SCH ×2 (07:28→17:32)
[2018-10-05] MEDS: INSULIN LISPRO 100 UNIT/ML SC SCH ×3 (07:28→17:32)
[2018-10-05] MEDS ORDERED: ONDANSETRON DISINTEGRATING 4 MG TAB ONE (07:51)
[2018-10-05] MEDS ORDERED: CITRIC ACID/SODIUM CITRATE 30 ML UDCUP ONE (07:51)
[2018-10-05] MEDS: NS 1,000 ML IV PRN (08:47)
[2018-10-05] MEDS ORDERED: METHOHEXITAL SODIUM 100 MG/10 ML SYR IVP ONE (09:00)
[2018-10-05] MEDS ORDERED: MIDAZOLAM 2 MG/2 ML VIAL ONE (09:00)
--- NOTE | 2018-10-05 09:01 | PDANEPAE ---
ECT Pre Anesthetic Evaluation Allergies/Adverse Reactions: No Known Allergies Allergy (Unverified 09/20/18 21:24) Patient ID confirmed: Yes H&P reviewed: Yes Pre-anesthetic history reviewed: Yes Heart: regular rate and rhythym, no murmur, rub, or gallop Lungs: no respiratory distress, no rales or rhonchi Mallampati Score: Class 2 ASA Status: II, III Home Medications: Medication Instructions Recorded Insulin Detemir [Levemir] 16 unit SQ HS 09/20/18 Insulin Lispro [Humalog] 0 unit SQ AC 09/20/18 Labetalol HCl [Trandate 100 mg (*)] 100 mg PO BID 09/20/18 Lurasidone HCl [Latuda] 80 mg PO DAILY@0800 09/20/18 Mirtazapine [Remeron] 15 mg PO HS 09/20/18 Simvastatin [Zocor] 40 mg PO HS 09/20/18 Sodium Bicarbonate [Na Bicarb 650 650 mg PO TID 09/20/18 MG (RX)] clonazePAM [Clonazepam] 1 mg PO BID 09/20/18 hydrOXYzine HCL [Vistaril 25MG] 25 mg PO Q4 PRN 09/20/18 Medication review: completed Patient interviewed: Yes Patient examined: Yes Anesthetic plan discussed with patient: Yes Anesthetic risks discussed with patient: Yes ECT Pre-Anesthetic History - Height & Weight Height: 152.4 cm Weight: 103.873 kg BMI: 44.72 - Anesthesia History Hx Anesthesia Complications (with details): None Family Hx Anesthesia Complications: None - Medications In the Past 6 Months the Patient Has Taken: Insulin, Blood Pressure Medication - Tobacco/Alcohol/Drug Use Smoking Status: Never smoked Hx Drug/Substance Abuse: No Alcohol Use: No - Prior Surgeries/Hospitalizations Prior Surgeries: Ileostomy, unsure what year. Prior Medical Hospitalizations: Patient unsure, besides ileostomy surgery. - Pulmonary History ECT Hx Asthma: No Hx Abnormal Chest X-Ray: No Hx Oxygen in Use at Home: No - Cardiovascular History Hx Hypertension: Yes Currently Uses Hypertension Medication: Yes Hx Arrhythmias: No Hx Palpitations: No Hx Chest Pain: No Hx Coronary Artery / Peripheral Vascular Disease: No Hx Blood Clot: No - Neurologic History Hx Cerebrovascular Accident: No Hx CT Scan Or MRI Of The Brain: No Hx Epilepsy, Convulsions, Seizures, Or Blackouts: No Hx Frequent Or Severe Headaches: No Hx Numbness: No Hx Neurologic Disorder: No - Dental History Current Dental Issues: None - Endocrine History Hx Diabetes: Yes Current Daily Insulin Injections: Yes Hx Thyroid Problems: No Endocrine History Comment: Pt takes Lantus at night and Lispro TID with meals. 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 - Liver History Hx Hepatic Disorders: No - Cancer History Hx Cancer: No - Hematology History Hx Unexplained Bleeding Of Any Type: No Hx Ease Of Bruising: No Hx Anemia: No - Gastrointestinal History Hx Gastroesophogeal Reflux Disease: No Hx Ulcers: No Hx Hiatal Hernia: No Hx Difficulty Swallowing: No - Musculoskeletal Hisory Hx Chronic Pain: No Hx Arthritis: No - Opthalmic History Hx Glaucoma: No Visual Assistive Devices: Glasses Hx Opthalmic Disorders: No - Other Health History Physical Disabililty: No Recent Cough, Cold, or Fever: No Significant Weight Loss In The Last 4 Months: No Possible the Patient Might be : No
[2018-10-05] MEDS ORDERED: fentaNYL 100 MCG/2 ML INJ ONE (09:02)
[2018-10-05] MEDS ORDERED: GLYCOPYRROLATE 0.2 MG/1 ML VIAL ONE (09:03)
[2018-10-05] MEDS ORDERED: ONDANSETRON 4 MG/2 ML VIAL ONE ×2 (09:04)
--- NOTE | 2018-10-05 09:17 | PDECTPN ---
ECT Progress Note Patient Problems: Problems Problem Status Onset Code Severe major depression Acute F32.2 Date: 10/05/18 ECT provider: Krystian Serrano Anesthesia: Marika Berger Stimulus dose (%): 60 Pulse width: 0.5 ECT EMG (sec): 21 ECT EEG (sec): 43 ECT treatment type: bilateral QIDS-SR Total Score: 9 QIDS-SR Question #12 Score: 0 MMSE Total Score (Max = 21): 20 Next ECT date: 10/07/18 Next ECT time: 07:00 Home medications: Medication Instructions Recorded Insulin Detemir [Levemir] 16 unit SQ HS 09/20/18 Insulin Lispro [Humalog] 0 unit SQ AC 09/20/18 Labetalol HCl [Trandate 100 mg (*)] 100 mg PO BID 09/20/18 Lurasidone HCl [Latuda] 80 mg PO DAILY@0800 09/20/18 Mirtazapine [Remeron] 15 mg PO HS 09/20/18 Simvastatin [Zocor] 40 mg PO HS 09/20/18 Sodium Bicarbonate [Na Bicarb 650 650 mg PO TID 09/20/18 MG (RX)] clonazePAM [Clonazepam] 1 mg PO BID 09/20/18 hydrOXYzine HCL [Vistaril 25MG] 25 mg PO Q4 PRN 09/20/18 Medication review: completed Current treatment plan: acute phase Treatment plan frequency: 3 times per week ECT narrative: Pt presents for continued acute course ECT treatment. Calmer today. States she feels "better." No panting or moaning. Affect is blunted though brighter, better modulated. Mood is "better." TP linear. TC reveals no overt psychosis. Underwent bilateral ECT without complication. CCM.
--- NOTE | 2018-10-05 09:39 | POSTANESTH ---
Post Anesthetic Evaluation Cardiovascular Status: Normal, Stable, Similar to Pre-Op Cond Respiratory Status: Normal, Stable, Similar to Pre-op Cond. Level of Consciousness/Mental Status: Moderately Sleepy Pain Control: Adequate, Prn Tx Ordered Nausea/Vomiting Control: Adequate, Prn Tx Ordered Complications Possibly Related to Anesthesia: None Noted
[2018-10-05] MEDS: clonazePAM 0.5 MG TAB PO SCH ×2 (10:34→19:23)
[2018-10-05] MEDS: FERROUS SULFATE 325 MG TAB PO SCH (10:35)
--- NOTE | 2018-10-05 11:42 | ASMTCMCOM ---
CM Note CM Note Notes: CC sent fax to [facility] watiting to hear back with appts, etc. Client remains the same on the unit, less vocial than previously. Client spends time on the unit with peers and in her room.* Date Signed: 10/05/2018 11:41 AM Electronically Signed By:Raúl Zafar
[2018-10-05] MEDS: LURASIDONE HCL 80 MG TAB PO SCH (12:21)
[2018-10-05] MEDS: ATORVASTATIN CALCIUM 20 MG TAB PO SCH (19:23)
[2018-10-05] MEDS: INSULIN GLARGINE 100 UNITS/ML UNIT SC SCH (19:24)
[2018-10-06] MEDS: LURASIDONE HCL 80 MG TAB PO SCH (09:04)
[2018-10-06] MEDS: clonazePAM 0.5 MG TAB PO SCH ×2 (09:05→17:55)
[2018-10-06] MEDS: FERROUS SULFATE 325 MG TAB PO SCH (09:05)
[2018-10-06] MEDS: INSULIN LISPRO 100 UNIT/ML SC SCH ×3 (09:05→17:51)
[2018-10-06] MEDS: LABETALOL HCL 100 MG TAB PO SCH ×2 (09:05→19:07)
[2018-10-06] MEDS: metFORMIN HCL 500 MG TAB PO SCH ×2 (09:05→17:52)
--- NOTE | 2018-10-06 12:01 | ASMTCMCOM ---
CM Note CM Note Notes: Pt. reports feeling "okay, little bit light headed". Pt. stated she has been needing to use her walked today, as she has been unsteady on her feet. Pt. stated she "slept well". Pt. reports eating well and having ECT yesterday. Pt. reports no issues with her current medications. Pt. stated "I don't know" when asked if she has having any issues while on the unit. Pt. attended treatment team meeting, and stated "I don't know why I am the way I am", referring to when pt's family visits. Pt. stated DOC is visually and hearing impaired. Pt. presents as alert, anxious, shallow breathing, nervously holding on to walked while sitting, poor eye contact, cooperative, and not groomed. Staff report pt. 10.5 hours and being medication compliant. Date Signed: 10/06/2018 12:00 PM Electronically Signed By:Amy Dozier
--- NOTE | 2018-10-06 12:04 | SOAPPROG ---
SOAP Progress Note Assessment/Plan: Assessment: Plan: 09/27/18 14:17 Mood: Early objective improvement. CCM. 09/29/18 09:39 Mood: Continued gradual improvement. [facility]. 10/04/18 16:18 Mood: Some regression. More anxious and dysphoric today. Will [facility] inc: acute course ECT. 10/06/18 12:06 Mood: Continued intermittent infantile regression. Will work with staff to not reinforce this. Will [facility] pending insurance auth. Subjective: Pt seen, discussed with staff, interviewed in Treatment Team meeting. She regressed again last night when family visited. Very dependent, almost non- verbal, moaning and panting. This predictably worried family. Discussed this with pt in TT meeting. She has no insight into why this happens. Able to redirect similar behavior during interview. Team discussed need to not reinforce regressive behaviors and to reinforce mature behaviors. Objective: Vital Signs Temp Pulse Resp BP Pulse Ox 36.8 C 69 20 137/59 H 95 10/05/18 19:30 10/06/18 09:05 10/06/18 06:00 10/06/18 09:05 10/06/18 06:00 Laboratory Results 09/21/18 13:10 10/05/18 10/06/18 10/07/18 05:59 05:59 05:59 Intake Total 850 Balance 850 MSE: Moderate to severely anxious, varies. Affect is dysphoric, anxious, restricted. Mood is "anxious, bad." TP is abbreviated with negative perseverations on health. TC reveals somatic focus. - Time Spent With Patient Time Spent With Patient: 25" ICD10 Worksheet Patient Problems: Problems Problem Status Onset Severe major depression Acute
[2018-10-06] MEDS: ACETAMINOPHEN 325 MG TAB PO PRN (13:49)
[2018-10-06] MEDS: ATORVASTATIN CALCIUM 20 MG TAB PO SCH (19:07)
[2018-10-06] MEDS: INSULIN GLARGINE 100 UNITS/ML UNIT SC SCH (20:02)
[2018-10-07] MEDS ORDERED: THEOPHYLLINE ORAL SOLUTION 80 MG/15 ML UDCUP ONE (06:16)
[2018-10-07] MEDS: LABETALOL HCL 100 MG TAB PO SCH ×2 (06:25→19:55)
[2018-10-07] MEDS ORDERED: THEOPHYLLINE ORAL SOLUTION 80 MG/15 ML UDCUP PO ONE (06:30)
[2018-10-07] MEDS ORDERED: LIDOCAINE 2% 5 ML SDV ONE (06:36)
[2018-10-07] MEDS ORDERED: CITRIC ACID/SODIUM CITRATE 30 ML UDCUP ONE (06:47)
[2018-10-07] MEDS ORDERED: ONDANSETRON DISINTEGRATING 4 MG TAB ONE (06:47)
[2018-10-07] MEDS ORDERED: CITRIC ACID/SODIUM CITRATE 30 ML UDCUP PO PRN (07:05)
[2018-10-07] MEDS ORDERED: ONDANSETRON DISINTEGRATING 4 MG TAB PO PRN (07:05)
[2018-10-07] MEDS ORDERED: NS 1,000 ML IV PRN (07:05)
[2018-10-07] MEDS ORDERED: METHOHEXITAL SODIUM 500 MG/50 ML MDV ONE (07:06)
[2018-10-07] MEDS ORDERED: GLYCOPYRROLATE 0.2 MG/1 ML VIAL ONE (07:07)
[2018-10-07] MEDS ORDERED: MIDAZOLAM 2 MG/2 ML VIAL ONE (07:07)
[2018-10-07] MEDS ORDERED: fentaNYL 100 MCG/2 ML INJ ONE (07:07)
[2018-10-07] MEDS ORDERED: SUCCINYLCHOLINE CHLORIDE 200 MG/10 ML SYR IVP ONE (07:08)
[2018-10-07] MEDS ORDERED: ROCURONIUM 50 MG/5 ML VIAL ONE (07:08)
[2018-10-07] MEDS ORDERED: ONDANSETRON 4 MG/2 ML VIAL ONE (07:09)
[2018-10-07] MEDS ORDERED: PROPOFOL 200 MG/20 ML VIAL ONE (07:09)
--- NOTE | 2018-10-07 07:23 | PDECTPN ---
ECT Progress Note Patient Problems: Problems Problem Status Onset Code Severe major depression Acute F32.2 Date: 10/07/18 ECT provider: Krystian Serrano Anesthesia: Marika Berger Stimulus dose (%): 70 Pulse width: 0.5 ECT EMG (sec): 26 ECT EEG (sec): 48 ECT treatment type: bilateral QIDS-SR Total Score: 2 QIDS-SR Question #12 Score: 0 MMSE Total Score (Max = 21): 18 Next ECT date: 10/10/18 Next ECT time: 07:00 Home medications: Medication Instructions Recorded Insulin Detemir [Levemir] 16 unit SQ HS 09/20/18 Insulin Lispro [Humalog] 0 unit SQ AC 09/20/18 Labetalol HCl [Trandate 100 mg (*)] 100 mg PO BID 09/20/18 Lurasidone HCl [Latuda] 80 mg PO DAILY@0800 09/20/18 Mirtazapine [Remeron] 15 mg PO HS 09/20/18 Simvastatin [Zocor] 40 mg PO HS 09/20/18 Sodium Bicarbonate [Na Bicarb 650 650 mg PO TID 09/20/18 MG (RX)] clonazePAM [Clonazepam] 1 mg PO BID 09/20/18 hydrOXYzine HCL [Vistaril 25MG] 25 mg PO Q4 PRN 09/20/18 Medication review: completed Current treatment plan: acute phase Treatment plan frequency: 3 times per week ECT narrative: Pt presents for continued acute course ECT treatment. Calm and bright this morning, smiling and interactive. Reports uneventful night. SLept well. No c/ o's. BS good this morning. No panting or moaning. Affect is brighter, smiling. Mood is "pretty good." TP linear. TC reveals no overt psychosis. Underwent bilateral ECT without complication. Much better seizure with good organization, frequency, amplitude, morphology and suppression. Doing better today! CCM including acute course ECT for at least three more treatments. Will likely continue to require inpatient level care due to inability to consistently care for herself or interact meaningfully with other.
[2018-10-07] MEDS ORDERED: LABETALOL HCL 5 MG/ML 20 ML MDV ONE (07:38)
--- NOTE | 2018-10-07 07:39 | PDANEPAE ---
ECT Pre Anesthetic Evaluation Allergies/Adverse Reactions: No Known Allergies Allergy (Unverified 09/20/18 21:24) Patient ID confirmed: Yes H&P reviewed: Yes Pre-anesthetic history reviewed: Yes Heart: regular rate and rhythym, no murmur, rub, or gallop Lungs: no respiratory distress, no rales or rhonchi, clear to auscultation Mallampati Score: Class 2 ASA Status: III Home Medications: Medication Instructions Recorded Insulin Detemir [Levemir] 16 unit SQ HS 09/20/18 Insulin Lispro [Humalog] 0 unit SQ AC 09/20/18 Labetalol HCl [Trandate 100 mg (*)] 100 mg PO BID 09/20/18 Lurasidone HCl [Latuda] 80 mg PO DAILY@0800 09/20/18 Mirtazapine [Remeron] 15 mg PO HS 09/20/18 Simvastatin [Zocor] 40 mg PO HS 09/20/18 Sodium Bicarbonate [Na Bicarb 650 650 mg PO TID 09/20/18 MG (RX)] clonazePAM [Clonazepam] 1 mg PO BID 09/20/18 hydrOXYzine HCL [Vistaril 25MG] 25 mg PO Q4 PRN 09/20/18 Medication review: completed Patient interviewed: Yes Patient examined: Yes Anesthetic plan discussed with patient: Yes Anesthetic risks discussed with patient: Yes ECT Pre-Anesthetic History - Height & Weight Height: 152.4 cm Weight: 103.873 kg BMI: 44.72 - Anesthesia History Hx Anesthesia Complications (with details): None Family Hx Anesthesia Complications: None - Medications In the Past 6 Months the Patient Has Taken: Insulin, Blood Pressure Medication - Tobacco/Alcohol/Drug Use Smoking Status: Never smoked Hx Drug/Substance Abuse: No Alcohol Use: No - Prior Surgeries/Hospitalizations Prior Surgeries: Ileostomy, unsure what year. Prior Medical Hospitalizations: Patient unsure, besides ileostomy surgery. - Pulmonary History ECT Hx Asthma: No Hx Abnormal Chest X-Ray: No Hx Oxygen in Use at Home: No - Cardiovascular History Hx Hypertension: Yes Currently Uses Hypertension Medication: Yes Hx Arrhythmias: No Hx Palpitations: No Hx Chest Pain: No Hx Coronary Artery / Peripheral Vascular Disease: No Hx Blood Clot: No - Neurologic History Hx Cerebrovascular Accident: No Hx CT Scan Or MRI Of The Brain: No Hx Epilepsy, Convulsions, Seizures, Or Blackouts: No Hx Frequent Or Severe Headaches: No Hx Numbness: No Hx Neurologic Disorder: No - Dental History Current Dental Issues: None - Endocrine History Hx Diabetes: Yes Current Daily Insulin Injections: Yes Hx Thyroid Problems: No Endocrine History Comment: Pt takes Lantus at night and Lispro TID with meals. 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 - Liver History Hx Hepatic Disorders: No - Cancer History Hx Cancer: No - Hematology History Hx Unexplained Bleeding Of Any Type: No Hx Ease Of Bruising: No Hx Anemia: No - Gastrointestinal History Hx Gastroesophogeal Reflux Disease: No Hx Ulcers: No Hx Hiatal Hernia: No Hx Difficulty Swallowing: No - Musculoskeletal Hisory Hx Chronic Pain: No Hx Arthritis: No - Opthalmic History Hx Glaucoma: No Visual Assistive Devices: Glasses Hx Opthalmic Disorders: No - Other Health History Physical Disabililty: No Recent Cough, Cold, or Fever: No Significant Weight Loss In The Last 4 Months: No Possible the Patient Might be : No
[2018-10-07] MEDS: LURASIDONE HCL 80 MG TAB PO SCH (09:32)
[2018-10-07] MEDS: metFORMIN HCL 500 MG TAB PO SCH ×2 (09:32→17:12)
[2018-10-07] MEDS: INSULIN LISPRO 100 UNIT/ML SC SCH ×3 (09:32→17:44)
[2018-10-07] MEDS: clonazePAM 0.5 MG TAB PO SCH ×2 (09:32→19:55)
[2018-10-07] MEDS: FERROUS SULFATE 325 MG TAB PO SCH (09:38)
--- NOTE | 2018-10-07 11:07 | ASMTBHDC ---
Notes Note: Notes: The patient was cheerful as evidenced by her smile and self report. She reported that she is at a "turning point" with ECT treatment and that she feels like it is "breaking up" her depression. The patient discussed her insurance, inpatient versus outpatient treatments, and the duration of treatment. The patient reported that she was overwhelmed by her breakfast and that she may not be able to complete the meal. She paused during the conversation although she did not become tearful. Date Signed: 10/07/2018 11:06 AM Electronically Signed By:Kimberly Stevenson
[2018-10-07] MEDS: LORazepam 0.5 MG TAB PO PRN (17:56)
[2018-10-07] MEDS: ATORVASTATIN CALCIUM 20 MG TAB PO SCH (19:55)
[2018-10-07] MEDS: INSULIN GLARGINE 100 UNITS/ML UNIT SC SCH (20:15)
[2018-10-08] MEDS: INSULIN LISPRO 100 UNIT/ML SC SCH ×3 (08:10→17:22)
[2018-10-08] MEDS: LABETALOL HCL 100 MG TAB PO SCH ×2 (08:18→20:35)
[2018-10-08] MEDS: LURASIDONE HCL 80 MG TAB PO SCH (08:18)
[2018-10-08] MEDS: FERROUS SULFATE 325 MG TAB PO SCH (08:20)
[2018-10-08] MEDS: clonazePAM 0.5 MG TAB PO SCH ×2 (08:20→20:34)
[2018-10-08] MEDS: metFORMIN HCL 500 MG TAB PO SCH ×2 (08:20→17:40)
--- NOTE | 2018-10-08 10:28 | SOAPPROG ---
SOAP Progress Note Assessment/Plan: Assessment: 48yo CF with major depr d/o, recurrent, severe without psychosis, with treatment resistant features, possible generalized anxiety d/o and multiple medical problems including Crohn's dz, type 2 DM, obesity, DIALLO with signif decline in functioning and multiple admissions over the past year now admitted for acute course of ECT 10/08/18 10:28 slept 7hr. per staff, needing much support around menu ordering and having difficulty with decision making. perseverative, anxious. comes daily with [employer]. family visiting almost daily. 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 has been regressed, dependent, but very slowly improving. casually dressed, overwt, sitting on sofa chair, fair eye contact, nml vol and rate speech, affect initially calm but then increasingly anxious and began to hyperventilate as interview progressed. "I don't know what I'm supposed to be doing". states relationship is good with who visits regularly. wondering when will go home. denied any AH/VH or any SI. denied physical compliants. Oriented to place/person, initially, "I don't know, Oct 06? no, Oct 08Wednesday". got up b/c felt anxious with attempting continued interview , and so interview was terminated. Pt noted more calm thereafter, visible in milieu. PLAN: cont ECT as scheduled continue current meds Objective: Vital Signs Temp Pulse Resp BP Pulse Ox 36.7 C 58 L 14 130/70 H 98 10/07/18 09:29 10/08/18 06:00 10/08/18 06:00 10/08/18 06:00 10/08/18 06:00 Laboratory Results 09/21/18 13:10 10/07/18 10/08/18 10/09/18 05:59 05:59 05:59 Intake Total 200 Balance 200 - Time Spent With Patient Time Spent With Patient: 15min - Pending Discharge Pending Discharge Within 24 Hours: No Pending Discharge Within 48 Hours: No ICD10 Worksheet Patient Problems: Problems Problem Status Onset Severe major depression Acute
--- NOTE | 2018-10-08 11:53 | ASMTCMCOM ---
CM Note CM Note Notes: Pt. stated her day "it's okay". Pt. stated she slept "okay". Pt. reports eating well and attending groups. Pt. reports no issues with her current medications. Pt. stated she had ECT yesterday, stating "went okay". Pt. stated she has ECT on Wednesday, but is not sure how many more treatments she needs, possibly three more. Pt. denied SI, HI, AVH and paranoia. Pt. presents as alert, anxious, worried, shallow breathing, lacking eye contact, not groomed, and cooperative. Staff report pt. sleeping 10 hours and being medication compliant. Date Signed: 10/08/2018 11:52 AM Electronically Signed By:Amy Dozier
[2018-10-08] MEDS: LORazepam 0.5 MG TAB PO PRN (17:02)
[2018-10-08] MEDS: ATORVASTATIN CALCIUM 20 MG TAB PO SCH (20:34)
[2018-10-08] MEDS: INSULIN GLARGINE 100 UNITS/ML UNIT SC SCH (20:35)
[2018-10-09] MEDS: LURASIDONE HCL 80 MG TAB PO SCH (08:16)
[2018-10-09] MEDS: clonazePAM 0.5 MG TAB PO SCH ×2 (08:18→15:54)
[2018-10-09] MEDS: metFORMIN HCL 500 MG TAB PO SCH ×2 (08:19→17:45)
[2018-10-09] MEDS: FERROUS SULFATE 325 MG TAB PO SCH (08:19)
[2018-10-09] MEDS: LABETALOL HCL 100 MG TAB PO SCH ×2 (08:20→17:45)
[2018-10-09] MEDS: INSULIN LISPRO 100 UNIT/ML SC SCH ×3 (08:22→16:57)
--- NOTE | 2018-10-09 11:12 | SOAPPROG ---
SOAP Progress Note Assessment/Plan: Assessment: 48yo CF with major depr d/o, recurrent, severe without psychosis, with treatment resistant features, possible generalized anxiety d/o and multiple medical problems including Crohn's dz, type 2 DM, obesity, DIALLO with signif decline in functioning and multiple admissions over the past year now admitted for acute course of ECT 10/08/18 10:28 slept 7hr. per staff, needing much support around menu ordering and having difficulty with decision making. perseverative, anxious. comes daily with [employer] food. family visiting almost daily. 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 has been regressed, dependent, but very slowly improving. casually dressed, overwt, sitting on sofa chair, fair eye contact, nml vol and rate speech, affect initially calm but then increasingly anxious and began to hyperventilate as interview progressed. "I don't know what I'm supposed to be doing". states relationship is good with who visits regularly. wondering when will go home. denied any AH/VH or any SI. denied physical compliants. Oriented to place/person, initially, "I don't know, Oct 06? no, Oct 08Wednesday". got up b/c felt anxious with attempting continued interview , and so interview was terminated. Pt noted more calm thereafter, visible in milieu. PLAN: cont ECT as scheduled continue current meds 10/09/18 11:09 slept 8hr. reported goal today was to participate in groups. does attend groups. had prn ativan yesterday evening. seemed "better" today per staff. Kenna starts tonight. Pt observes. pt actively approached MD for interview to ask about plans for d/c. pt able to state overall she feels better and understands a few more ECT treatments are scheduled "I had the one Wednesday" and states plan was for 10-12. hoping not to stay through another w/e. she denied having had several hospitalizations this year. denied physical probs or med s/e. looking fwd to family visit today. casually dressed, more calm, good e/c, more engaged in interview today. mood "okay", reality based thoughts altho somewhat concrete, with perseveration on d/ c plan and not able to specifically reflect on or identify areas of improvement altho clinically has been noted with some gradual improvement, denied psychotic sxs or any si. i-seems limited. j-fair. observed to be experiencing anxiety/panic during family visit and asked for ativan. plan; -cont ECT and current meds -encourage adequate fluid intake. H in past reported hx dehydration Objective: Vital Signs Temp Pulse Resp BP Pulse Ox 36.7 C 60 14 131/60 H 95 10/07/18 09:29 10/09/18 08:20 10/09/18 06:00 10/09/18 08:20 10/09/18 06:00 Laboratory Results 09/21/18 13:10 10/08/18 10/09/18 10/10/18 05:59 05:59 05:59 Intake Total 200 Balance 200 - Time Spent With Patient Time Spent With Patient: 15min - Pending Discharge Pending Discharge Within 24 Hours: No Pending Discharge Within 48 Hours: No ICD10 Worksheet Patient Problems: Problems Problem Status Onset Severe major depression Acute
[2018-10-09] MEDS: LORazepam 0.5 MG TAB PO PRN (13:18)
[2018-10-09] MEDS: INSULIN GLARGINE 100 UNITS/ML UNIT SC SCH (19:17)
[2018-10-09] MEDS: ATORVASTATIN CALCIUM 20 MG TAB PO SCH (19:17)
[2018-10-10] MEDS ORDERED: ONDANSETRON DISINTEGRATING 4 MG TAB PO PRN (04:11)
[2018-10-10] MEDS ORDERED: NS 1,000 ML IV PRN (04:11)
[2018-10-10] MEDS ORDERED: CITRIC ACID/SODIUM CITRATE 30 ML UDCUP PO PRN (04:11)
[2018-10-10] MEDS ORDERED: THEOPHYLLINE ORAL SOLUTION 80 MG/15 ML UDCUP PO ONE (04:11)
[2018-10-10] MEDS: LABETALOL HCL 100 MG TAB PO SCH ×2 (05:23→19:29)
[2018-10-10] MEDS ORDERED: LIDOCAINE 2% 5 ML SDV ONE (05:50)
[2018-10-10] MEDS ORDERED: METHOHEXITAL SODIUM 100 MG/10 ML SYR IVP ONE (06:29)
[2018-10-10] MEDS ORDERED: fentaNYL 100 MCG/2 ML INJ ONE (06:29)
[2018-10-10] MEDS ORDERED: MIDAZOLAM 2 MG/2 ML VIAL ONE (06:29)
[2018-10-10] MEDS ORDERED: ONDANSETRON DISINTEGRATING 4 MG TAB ONE (07:08)
[2018-10-10] MEDS ORDERED: CITRIC ACID/SODIUM CITRATE 30 ML UDCUP ONE (07:08)
--- NOTE | 2018-10-10 07:38 | PDHPUP ---
History & Physical Update H&P update statement: This history and physical update is based on an assessment of the patient which was completed after admission or registration (within 24 hours), but prior to the surgery/procedure. H&P update: H&P reviewed & patient examined, changes noted (see pre-ECT anes eval for changes)
--- NOTE | 2018-10-10 07:38 | POSTANESTH ---
Post Anesthetic Evaluation Cardiovascular Status: Normal, Stable Respiratory Status: Normal, Stable Level of Consciousness/Mental Status: Can Participate in Eval, Mildly Sleepy, Arousable Pain Control: Adequate, Prn Tx Ordered Nausea/Vomiting Control: Adequate, Prn Tx Ordered Complications Possibly Related to Anesthesia: None Noted
--- NOTE | 2018-10-10 07:54 | PDECTPN ---
ECT Progress Note Patient Problems: Problems Problem Status Onset Code Severe major depression Acute F32.2 Date: 10/10/18 ECT provider: Krystian Serrano Anesthesia: Bella Mendenhall Stimulus dose (%): 75 Pulse width: 0.5 ECT EMG (sec): 19 ECT EEG (sec): 32 ECT treatment type: bilateral QIDS-SR Total Score: 2 QIDS-SR Question #12 Score: 0 MMSE Total Score (Max = 21): 18 Next ECT date: 10/12/18 Next ECT time: 06:00 Home medications: Medication Instructions Recorded Insulin Detemir [Levemir] 16 unit SQ HS 09/20/18 Insulin Lispro [Humalog] 0 unit SQ AC 09/20/18 Labetalol HCl [Trandate 100 mg (*)] 100 mg PO BID 09/20/18 Lurasidone HCl [Latuda] 80 mg PO DAILY@0800 09/20/18 Mirtazapine [Remeron] 15 mg PO HS 09/20/18 Simvastatin [Zocor] 40 mg PO HS 09/20/18 Sodium Bicarbonate [Na Bicarb 650 650 mg PO TID 09/20/18 MG (RX)] clonazePAM [Clonazepam] 1 mg PO BID 09/20/18 hydrOXYzine HCL [Vistaril 25MG] 25 mg PO Q4 PRN 09/20/18 Current treatment plan: acute phase Treatment plan frequency: 3 times per week ECT narrative: Pt presents for continued acute course ECT treatment. Brighter this morning; smiling and interactive. Reports good weekend with several family visits. Eating and drinking better. Grooming better. Notes subjective improvement in mood. No panting or moaning. Affect is brighter, smiling. Mood is "pretty good." TP linear. TC reveals no overt psychosis. Underwent bilateral ECT without complication. Continued improvement. CCM including acute course ECT this week for a total of ten treatments. She remains quite disabled, but improving. Will convene family meeting tomorrow to discuss specific criteria for d/c to home and seek to match care needs.
[2018-10-10] MEDS: INSULIN LISPRO 100 UNIT/ML SC SCH ×3 (09:06→18:28)
[2018-10-10] MEDS: FERROUS SULFATE 325 MG TAB PO SCH (09:07)
[2018-10-10] MEDS: LURASIDONE HCL 80 MG TAB PO SCH (09:07)
[2018-10-10] MEDS: metFORMIN HCL 500 MG TAB PO SCH ×2 (09:07→18:28)
[2018-10-10] MEDS: clonazePAM 0.5 MG TAB PO SCH ×2 (09:07→19:29)
--- NOTE | 2018-10-10 09:08 | ASMTCMCOM ---
CM Note CM Note Notes: CC checked in with ct. She presented with very flat affect and delayed response. Hygiene is marginal. Ct. reported that she is doing fine. She had a hard time forming her thoughts. She is not sure what the plan is and how long she will be on the unit. Date Signed: 10/10/2018 09:07 AM Electronically Signed By:Jania Diaz
[2018-10-10] MEDS: ATORVASTATIN CALCIUM 20 MG TAB PO SCH (19:29)
[2018-10-10] MEDS: INSULIN GLARGINE 100 UNITS/ML UNIT SC SCH (19:31)
[2018-10-11] MEDS: metFORMIN HCL 500 MG TAB PO SCH ×2 (08:47→17:04)
[2018-10-11] MEDS: LURASIDONE HCL 80 MG TAB PO SCH (08:48)
[2018-10-11] MEDS: LABETALOL HCL 100 MG TAB PO SCH ×2 (08:48→18:32)
[2018-10-11] MEDS: clonazePAM 0.5 MG TAB PO SCH ×2 (08:48→19:36)
[2018-10-11] MEDS: FERROUS SULFATE 325 MG TAB PO SCH (08:48)
[2018-10-11] MEDS: INSULIN LISPRO 100 UNIT/ML SC SCH ×3 (08:49→17:04)
--- NOTE | 2018-10-11 09:13 | ASMTCMCOM ---
CM Note CM Note Notes: CC out-reached HOC ([facility]) with no answer, regarding a family meeting the provider would like to set for 10/13 at 11:30am. CC left a detailed VM with all necessary return contact information etc. Date Signed: 10/11/2018 09:12 AM Electronically Signed By:Raúl Zafar
--- NOTE | 2018-10-11 16:38 | SOAPPROG ---
SOAP Progress Note Assessment/Plan: Assessment: Plan: 09/27/18 14:17 Mood: Early objective improvement. CCM. 09/29/18 09:39 Mood: Continued gradual improvement. CCM. 10/04/18 16:18 Mood: Some regression. More anxious and dysphoric today. Will [facility]: acute course ECT. 10/06/18 12:06 Mood: Continued intermittent infantile regression. Will work with staff to not reinforce this. Will [facility] pending insurance auth. 10/11/18 16:36 Mood: Improved today. Subjective symptom relief is emerging as well. Functioning better. Hope to see adequate progress to allow d/c after treatment on 10/14/18. [facility]. Subjective: Pt seen, discussed with staff. Reports feeling "pretty good." Sitting in day room watching TV. Interactive and conversant. Grooming better. PO intake improved. Discussed course of treatment and d/c plan. For the first time, she states she is looking forward to going home. Still has anxiety that she cannot care for herself or will regress. Objective: Vital Signs Temp Pulse Resp BP Pulse Ox 36.6 C 59 L 14 125/67 H 93 10/10/18 10:45 10/11/18 08:48 10/11/18 06:00 10/11/18 08:48 10/11/18 06:00 Laboratory Results 09/21/18 13:10 10/10/18 10/11/18 10/12/18 05:59 05:59 05:59 Intake Total 395 Balance 395 MSE: Better-groomed, coop, pleasant. Affect is brighter, though remains blunted, stable. Mood is "pretty good." TP is linear. TC reveals no psychosis. - Time Spent With Patient Time Spent With Patient: 25" ICD10 Worksheet Patient Problems: Problems Problem Status Onset Severe major depression Acute
[2018-10-11] MEDS: ATORVASTATIN CALCIUM 20 MG TAB PO SCH (18:37)
[2018-10-11] MEDS: INSULIN GLARGINE 100 UNITS/ML UNIT SC SCH (19:35)
[2018-10-12] MEDS ORDERED: ONDANSETRON DISINTEGRATING 4 MG TAB PO PRN (04:00)
[2018-10-12] MEDS ORDERED: CITRIC ACID/SODIUM CITRATE 30 ML UDCUP PO PRN (04:00)
[2018-10-12] MEDS ORDERED: NS 1,000 ML IV PRN (04:00)
[2018-10-12] MEDS ORDERED: THEOPHYLLINE ORAL SOLUTION 80 MG/15 ML UDCUP PO ONE (04:00)
[2018-10-12] MEDS ORDERED: LIDOCAINE 2% 5 ML SDV ONE (05:53)
[2018-10-12] MEDS ORDERED: CITRIC ACID/SODIUM CITRATE 30 ML UDCUP ONE (06:01)
[2018-10-12] MEDS ORDERED: ONDANSETRON DISINTEGRATING 4 MG TAB ONE (06:01)
[2018-10-12] MEDS ORDERED: MIDAZOLAM 2 MG/2 ML VIAL ONE (06:15)
[2018-10-12] MEDS ORDERED: fentaNYL 100 MCG/2 ML INJ ONE (06:15)
[2018-10-12] MEDS ORDERED: ONDANSETRON 4 MG/2 ML VIAL ONE (06:15)
[2018-10-12] MEDS ORDERED: GLYCOPYRROLATE 0.2 MG/1 ML VIAL ONE (06:15)
[2018-10-12] MEDS ORDERED: LABETALOL HCL 5 MG/ML 20 ML MDV ONE (06:17)
[2018-10-12] MEDS ORDERED: PROPOFOL 200 MG/20 ML VIAL ONE (06:17)
[2018-10-12] MEDS ORDERED: METHOHEXITAL SODIUM 100 MG/10 ML SYR IVP ONE (06:17)
[2018-10-12] MEDS ORDERED: SUCCINYLCHOLINE CHLORIDE 200 MG/10 ML VIAL ONE (06:17)
[2018-10-12] MEDS ORDERED: ROCURONIUM 50 MG/5 ML VIAL ONE (06:18)
--- NOTE | 2018-10-12 06:45 | PDHPUP ---
History & Physical Update H&P update statement: This history and physical update is based on an assessment of the patient which was completed after admission or registration (within 24 hours), but prior to the surgery/procedure. H&P update: H&P reviewed & patient examined, no change in patient's condition since H&P completed (no changes since last treatment on Wednesday)
--- NOTE | 2018-10-12 06:45 | PDANEPAE ---
ECT Pre Anesthetic Evaluation Allergies/Adverse Reactions: No Known Allergies Allergy (Unverified 09/20/18 21:24) Patient ID confirmed: Yes H&P reviewed: Yes Pre-anesthetic history reviewed: Yes Heart: regular rate and rhythym Lungs: clear to auscultation Mallampati Score: Class 3 (poor effort today) ASA Status: III Home Medications: Medication Instructions Recorded Insulin Detemir [Levemir] 16 unit SQ HS 09/20/18 Insulin Lispro [Humalog] 0 unit SQ AC 09/20/18 Labetalol HCl [Trandate 100 mg (*)] 100 mg PO BID 09/20/18 Lurasidone HCl [Latuda] 80 mg PO DAILY@0800 09/20/18 Mirtazapine [Remeron] 15 mg PO HS 09/20/18 Simvastatin [Zocor] 40 mg PO HS 09/20/18 Sodium Bicarbonate [Na Bicarb 650 650 mg PO TID 09/20/18 MG (RX)] clonazePAM [Clonazepam] 1 mg PO BID 09/20/18 hydrOXYzine HCL [Vistaril 25MG] 25 mg PO Q4 PRN 09/20/18 Patient interviewed: Yes Patient examined: Yes See previous record: Yes Anesthetic plan discussed with patient: Yes Anesthetic risks discussed with patient: Yes ECT Pre-Anesthetic History - Height & Weight Height: 152.4 cm Weight: 103.873 kg BMI: 44.72 - Anesthesia History Hx Anesthesia Complications (with details): None Family Hx Anesthesia Complications: None - Medications In the Past 6 Months the Patient Has Taken: Insulin, Blood Pressure Medication - Tobacco/Alcohol/Drug Use Smoking Status: Never smoked Hx Drug/Substance Abuse: No Alcohol Use: No - Prior Surgeries/Hospitalizations Prior Surgeries: Ileostomy, unsure what year. Prior Medical Hospitalizations: Patient unsure, besides ileostomy surgery. - Pulmonary History ECT Hx Asthma: No Hx Abnormal Chest X-Ray: No Hx Oxygen in Use at Home: No - Cardiovascular History Hx Hypertension: Yes Currently Uses Hypertension Medication: Yes Hx Arrhythmias: No Hx Palpitations: No Hx Chest Pain: No Hx Coronary Artery / Peripheral Vascular Disease: No Hx Blood Clot: No - Neurologic History Hx Cerebrovascular Accident: No Hx CT Scan Or MRI Of The Brain: No Hx Epilepsy, Convulsions, Seizures, Or Blackouts: No Hx Frequent Or Severe Headaches: No Hx Numbness: No Hx Neurologic Disorder: No - Dental History Current Dental Issues: None - Endocrine History Hx Diabetes: Yes Current Daily Insulin Injections: Yes Hx Thyroid Problems: No Endocrine History Comment: Pt takes Lantus at night and Lispro TID with meals. 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 - Liver History Hx Hepatic Disorders: No - Cancer History Hx Cancer: No - Hematology History Hx Unexplained Bleeding Of Any Type: No Hx Ease Of Bruising: No Hx Anemia: No - Gastrointestinal History Hx Gastroesophogeal Reflux Disease: No Hx Ulcers: No Hx Hiatal Hernia: No Hx Difficulty Swallowing: No - Musculoskeletal Hisory Hx Chronic Pain: No Hx Arthritis: No - Opthalmic History Hx Glaucoma: No Visual Assistive Devices: Glasses Hx Opthalmic Disorders: No - Other Health History Physical Disabililty: No Recent Cough, Cold, or Fever: No Significant Weight Loss In The Last 4 Months: No Possible the Patient Might be : No
--- NOTE | 2018-10-12 07:09 | PDECTPN ---
ECT Progress Note Patient Problems: Problems Problem Status Onset Code Severe major depression Acute F32.2 Date: 10/12/18 ECT provider: Krystian Serrano Stimulus dose (%): 80 Pulse width: 0.5 ECT EMG (sec): 19 ECT EEG (sec): 32 ECT treatment type: bilateral QIDS-SR Total Score: 12 QIDS-SR Question #12 Score: 0 MMSE Total Score (Max = 21): 17 Next ECT date: 10/14/18 Next ECT time: 06:00 Home medications: Medication Instructions Recorded Insulin Detemir [Levemir] 16 unit SQ HS 09/20/18 Insulin Lispro [Humalog] 0 unit SQ AC 09/20/18 Labetalol HCl [Trandate 100 mg (*)] 100 mg PO BID 09/20/18 Lurasidone HCl [Latuda] 80 mg PO DAILY@0800 09/20/18 Mirtazapine [Remeron] 15 mg PO HS 09/20/18 Simvastatin [Zocor] 40 mg PO HS 09/20/18 Sodium Bicarbonate [Na Bicarb 650 650 mg PO TID 09/20/18 MG (RX)] clonazePAM [Clonazepam] 1 mg PO BID 09/20/18 hydrOXYzine HCL [Vistaril 25MG] 25 mg PO Q4 PRN 09/20/18 Medication review: completed Current treatment plan: acute phase Treatment plan frequency: 3 times per week ECT narrative: Pt presents for continued acute course ECT treatment. Bright and smiling. Appreciates humor. Subjective improvement continues. No panting or moaning. Affect is bright, smiling. Mood is "pretty good." TP linear. TC reveals no overt psychosis. Underwent bilateral ECT without complication. Doing well. [facility] acute course ECT this week for a total of ten treatments. Likely d/c on Wednesday if all is well.
[2018-10-12] MEDS: INSULIN LISPRO 100 UNIT/ML SC SCH ×3 (08:42→17:19)
[2018-10-12] MEDS: clonazePAM 0.5 MG TAB PO SCH ×2 (08:46→20:14)
[2018-10-12] MEDS: LABETALOL HCL 100 MG TAB PO SCH ×2 (08:46→20:14)
[2018-10-12] MEDS: metFORMIN HCL 500 MG TAB PO SCH ×2 (08:47→17:19)
[2018-10-12] MEDS: FERROUS SULFATE 325 MG TAB PO SCH (08:47)
[2018-10-12] MEDS: LURASIDONE HCL 80 MG TAB PO SCH (08:47)
--- NOTE | 2018-10-12 12:20 | ASMTCMCOM ---
CM Note CM Note Notes: Pt. reports feeling "Okay". Pt. stated she "slept well". Pt. stated she had ECT this morning, adding it "went good". Pt. stated she is eating well. Pt. reports no issues with her medications. Pt. stated she is attending groups. Pt. denied SI, HI, AVH and paranoia. Pt. stated "hope I get to go home soon". Pt. presents as alert, calm, eating breakfast, fair eye contact, and cooperative. Staff report pt. sleeping 10 hours and being medication compliant. Pt. was observed laughing out loud today. Date Signed: 10/12/2018 12:19 PM Electronically Signed By:Amy Dozier
[2018-10-12] MEDS: LORazepam 0.5 MG TAB PO PRN (18:09)
[2018-10-12] MEDS: INSULIN GLARGINE 100 UNITS/ML UNIT SC SCH (20:14)
[2018-10-12] MEDS: ATORVASTATIN CALCIUM 20 MG TAB PO SCH (20:14)
[2018-10-13] MEDS: clonazePAM 0.5 MG TAB PO SCH ×2 (08:56→18:08)
[2018-10-13] MEDS: LURASIDONE HCL 80 MG TAB PO SCH (08:56)
[2018-10-13] MEDS: LABETALOL HCL 100 MG TAB PO SCH ×2 (08:57→18:08)
[2018-10-13] MEDS: FERROUS SULFATE 325 MG TAB PO SCH (08:57)
[2018-10-13] MEDS: metFORMIN HCL 500 MG TAB PO SCH ×2 (08:57→17:36)
[2018-10-13] MEDS: INSULIN LISPRO 100 UNIT/ML SC SCH ×3 (08:58→17:37)
--- NOTE | 2018-10-13 11:34 | ASMTBHDC ---
Notes Note: Notes: Pt. reports "I'm okay". Pt. stated "it's good" about her breakfast. Pt. stated she slept "very well". Pt. reports no issues with her current medications. Pt. stated she is attending groups. Pt. reports no concerns while on the unit. Pt. stated "I think i'm doing okay". Pt. denied SI, HI, AVH and paranoia. Pt. stated she is "working on what I'm suppose to be doing". Pt. presents as alert, calm, friendly, fair eye contact, delayed responses at times, cooperative, and joking with staff. Staff report pt. sleeping 8 hours and being medication compliant. Pt. is scheduled to have ECT tomorrow and discharge after her treatment. Date Signed: 10/13/2018 11:33 AM Electronically Signed By:Amy Dozier
--- NOTE | 2018-10-13 16:44 | SOAPPROG ---
SOAP Progress Note Assessment/Plan: Assessment: Plan: 09/27/18 14:17 Mood: Early objective improvement. [facility]. 09/29/18 09:39 Mood: Continued gradual improvement. [facility]. 10/04/18 16:18 Mood: Some regression. More anxious and dysphoric today. Will [facility] inc: acute course ECT. 10/06/18 12:06 Mood: Continued intermittent infantile regression. Will work with staff to not reinforce this. Will [facility] pending insurance auth. 10/11/18 16:36 Mood: Improved today. Subjective symptom relief is emerging as well. Functioning better. Hope to see adequate progress to allow d/c after treatment on 10/14/18. CCM. 10/13/18 16:45 Mood: Much improved overall. Will complete acute course tomorrow and plan remains to d/c to home. Her anxiety and regressive behaviors are definitely a burden on others, but can be redirected and do not constitute criteria for inpatient care. These need to be addressed in outpatient psychotherapy. Will contact [facility] today and look in to home health nursing options. Subjective: Pt seen, discussed with staff. Interviewed in Treatment Team meeting. She is bright and upbeat, appropriately interactive with team. She becomes anxious at one point and begins to pant, but is able to calm down. Discussed d/c plan and she states repeatedly, "I don't know what it means to take care of myself. It' s been a long time." Informed pt and plan to d/c tomorrow after treatment. She is accepting of this. I called pt's to discussed d/c and he voices concerns that she is "not ready yet." His concerns center on the ongoing regressive behaviors she demonstrates when he visits. RN notes from last night are reviewed and are indicative of this. He states her behaviors are essentially annoying to him and his daughter and "we're going to go crazy if we have to be around that for very long." I discussed with him that she has improved significantly and no longer meets criteria for inpatient treatment. He has not heard back from [facility] re: outpatient appointments. I offered to continue to manage her meds and offered short-term psychotherapy with Keke in our office to bridge services if necessary. He declines this due to distance from their home. PCP appointment scheduled for next week. questions whether pt can manage her insulin. I reviewed the case at length with MD reviewer this morning who is in agreement with treatment plan. Objective: Vital Signs Temp Pulse Resp BP Pulse Ox 36.8 C 65 20 136/76 H 95 10/13/18 06:00 10/13/18 08:57 10/13/18 06:00 10/13/18 08:57 10/13/18 06:00 Laboratory Results 09/21/18 13:10 10/12/18 10/13/18 10/14/18 05:59 05:59 05:59 Intake Total 650 Balance 650 MSE: Marginally, but better groomed, coop. Anxious at time, but able to reconstitute. Affect is o/w euthymic, smiling, approp. Mood is "pretty good." TP is linear, goal-directed. TC reveals no psychosis. No SI. - Time Spent With Patient Time Spent With Patient: 35" ICD10 Worksheet Patient Problems: Problems Problem Status Onset Severe major depression Acute
[2018-10-13] MEDS: ATORVASTATIN CALCIUM 20 MG TAB PO SCH (18:07)
[2018-10-13] MEDS: INSULIN GLARGINE 100 UNITS/ML UNIT SC SCH (20:17)
[2018-10-14] MEDS: LABETALOL HCL 100 MG TAB PO SCH ×2 (05:09→08:31)
[2018-10-14] MEDS ORDERED: LIDOCAINE 2% 5 ML SDV ONE (05:56)
[2018-10-14] MEDS ORDERED: NS 1,000 ML IV PRN (06:13)
[2018-10-14] MEDS ORDERED: THEOPHYLLINE ORAL SOLUTION 80 MG/15 ML UDCUP PO ONE (06:13)
[2018-10-14] MEDS ORDERED: CITRIC ACID/SODIUM CITRATE 30 ML UDCUP PO PRN (06:13)
[2018-10-14] MEDS ORDERED: ONDANSETRON DISINTEGRATING 4 MG TAB PO PRN (06:13)
[2018-10-14] MEDS ORDERED: PROPOFOL 200 MG/20 ML VIAL ONE (06:29)
[2018-10-14] MEDS ORDERED: ROCURONIUM 50 MG/5 ML VIAL ONE (06:29)
[2018-10-14] MEDS ORDERED: MIDAZOLAM 2 MG/2 ML VIAL ONE (06:29)
[2018-10-14] MEDS ORDERED: ONDANSETRON 4 MG/2 ML VIAL ONE (06:29)
[2018-10-14] MEDS ORDERED: fentaNYL 100 MCG/2 ML INJ ONE (06:29)
[2018-10-14] MEDS ORDERED: SUCCINYLCHOLINE CHLORIDE 200 MG/10 ML VIAL ONE (06:29)
[2018-10-14] MEDS ORDERED: GLYCOPYRROLATE 0.2 MG/1 ML VIAL ONE (06:29)
[2018-10-14] MEDS ORDERED: METHOHEXITAL SODIUM 100 MG/10 ML SYR IVP ONE (06:29)
[2018-10-14] MEDS ORDERED: CITRIC ACID/SODIUM CITRATE 30 ML UDCUP ONE (06:30)
[2018-10-14] MEDS ORDERED: ONDANSETRON DISINTEGRATING 4 MG TAB ONE (06:30)
[2018-10-14] MEDS ORDERED: THEOPHYLLINE ORAL SOLUTION 80 MG/15 ML UDCUP ONE (06:30)
--- NOTE | 2018-10-14 07:07 | PDANEPAE ---
ECT Pre Anesthetic Evaluation Allergies/Adverse Reactions: No Known Allergies Allergy (Unverified 09/20/18 21:24) Patient ID confirmed: Yes H&P reviewed: Yes Pre-anesthetic history reviewed: Yes Heart: regular rate and rhythym Lungs: no respiratory distress Mallampati Score: Class 2 ASA Status: III Home Medications: Medication Instructions Recorded Insulin Detemir [Levemir] 16 unit SQ HS 09/20/18 Insulin Lispro [Humalog] 0 unit SQ AC 09/20/18 Labetalol HCl [Trandate 100 mg (*)] 100 mg PO BID 09/20/18 Lurasidone HCl [Latuda] 80 mg PO DAILY@0800 09/20/18 Mirtazapine [Remeron] 15 mg PO HS 09/20/18 Simvastatin [Zocor] 40 mg PO HS 09/20/18 Sodium Bicarbonate [Na Bicarb 650 650 mg PO TID 09/20/18 MG (RX)] clonazePAM [Clonazepam] 1 mg PO BID 09/20/18 hydrOXYzine HCL [Vistaril 25MG] 25 mg PO Q4 PRN 09/20/18 Medication review: completed Patient interviewed: Yes Patient examined: Yes Anesthetic plan discussed with patient: Yes Anesthetic risks discussed with patient: Yes ECT Pre-Anesthetic History - Height & Weight Height: 152.4 cm Weight: 103.873 kg BMI: 44.72 - Anesthesia History Hx Anesthesia Complications (with details): None Family Hx Anesthesia Complications: None - Medications In the Past 6 Months the Patient Has Taken: Insulin, Blood Pressure Medication - Tobacco/Alcohol/Drug Use Smoking Status: Never smoked Hx Drug/Substance Abuse: No Alcohol Use: No - Prior Surgeries/Hospitalizations Prior Surgeries: Ileostomy, unsure what year. Prior Medical Hospitalizations: Patient unsure, besides ileostomy surgery. - Pulmonary History ECT Hx Asthma: No Hx Abnormal Chest X-Ray: No Hx Oxygen in Use at Home: No - Cardiovascular History Hx Hypertension: Yes Currently Uses Hypertension Medication: Yes Hx Arrhythmias: No Hx Palpitations: No Hx Chest Pain: No Hx Coronary Artery / Peripheral Vascular Disease: No Hx Blood Clot: No - Neurologic History Hx Cerebrovascular Accident: No Hx CT Scan Or MRI Of The Brain: No Hx Epilepsy, Convulsions, Seizures, Or Blackouts: No Hx Frequent Or Severe Headaches: No Hx Numbness: No Hx Neurologic Disorder: No - Dental History Current Dental Issues: None - Endocrine History Hx Diabetes: Yes Current Daily Insulin Injections: Yes Hx Thyroid Problems: No Endocrine History Comment: Pt takes Lantus at night and Lispro TID with meals. 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 - Liver History Hx Hepatic Disorders: No - Cancer History Hx Cancer: No - Hematology History Hx Unexplained Bleeding Of Any Type: No Hx Ease Of Bruising: No Hx Anemia: No - Gastrointestinal History Hx Gastroesophogeal Reflux Disease: No Hx Ulcers: No Hx Hiatal Hernia: No Hx Difficulty Swallowing: No - Musculoskeletal Hisory Hx Chronic Pain: No Hx Arthritis: No - Opthalmic History Hx Glaucoma: No Visual Assistive Devices: Glasses Hx Opthalmic Disorders: No - Other Health History Physical Disabililty: No Recent Cough, Cold, or Fever: No Significant Weight Loss In The Last 4 Months: No Possible the Patient Might be : No
--- NOTE | 2018-10-14 07:18 | PDECTPN ---
ECT Progress Note Patient Problems: Problems Problem Status Onset Code Severe major depression Acute F32.2 Date: 10/14/18 ECT provider: Krystian Serrano Anesthesia: Huy Zackmartha Stimulus dose (%): 85 Pulse width: 0.5 ECT EMG (sec): 16 ECT EEG (sec): 26 ECT treatment type: bilateral QIDS-SR Total Score: 2 QIDS-SR Question #12 Score: 0 MMSE Total Score (Max = 21): 18 Next ECT date: 10/19/18 Next ECT time: 08:30 Home medications: Medication Instructions Recorded Insulin Detemir [Levemir] 16 unit SQ HS 09/20/18 Insulin Lispro [Humalog] 0 unit SQ AC 09/20/18 Labetalol HCl [Trandate 100 mg (*)] 100 mg PO BID 09/20/18 Lurasidone HCl [Latuda] 80 mg PO DAILY@0800 09/20/18 Mirtazapine [Remeron] 15 mg PO HS 09/20/18 Simvastatin [Zocor] 40 mg PO HS 09/20/18 Sodium Bicarbonate [Na Bicarb 650 650 mg PO TID 09/20/18 MG (RX)] clonazePAM [Clonazepam] 1 mg PO BID 09/20/18 hydrOXYzine HCL [Vistaril 25MG] 25 mg PO Q4 PRN 09/20/18 Medication review: completed Current treatment plan: acute phase Treatment plan frequency: 3 times per week ECT narrative: Pt presents for continued acute course ECT treatment. Bright and smiling. States she is ready to go home. No anxiety or panting. Affect is bright, smiling. Mood is "pretty good." TP linear. TC reveals no psychosis. No SI. Underwent bilateral ECT without complication. Doing well. Will conclude acute course ECT today. Unclear whether will be able to bring her back for continuation treatment or not. I have recommended it on a weekly basis for four weeks if possible.
[2018-10-14] MEDS: FERROUS SULFATE 325 MG TAB PO SCH (08:30)
[2018-10-14] MEDS: clonazePAM 0.5 MG TAB PO SCH (08:30)
[2018-10-14] MEDS: metFORMIN HCL 500 MG TAB PO SCH (08:30)
[2018-10-14] MEDS: LURASIDONE HCL 80 MG TAB PO SCH (08:31)
[2018-10-14 08:32] VITALS: BP 148/84
[2018-10-14] MEDS: INSULIN LISPRO 100 UNIT/ML SC SCH ×2 (08:32→12:15)
--- NOTE | 2018-10-15 05:11 | BDS ---
REASON FOR ADMISSION: Patient is a 48-year-old female with history of severe recurrent annia or depression, who was admitted to our facility on transfer from a residential program in [place]. S he had been admitted there after 7 previous inpatient psychiatric hospitalizations in the [facility]. These began in December of 2017 due to a severe decline in her functioning related to a recu rrent major depressive episode. Multiple medication changes and recurrent hospitalizations were unab le to improve this, and she was ultimately sent to a trauma recovery residential program in [place]. Clearly, this was out of desperation as this was a complete mismatch for her diagnostically and prac tically. When she arrived there, they stated that she was inappropriate and attempted to admit her t o a [facility] for inpatient treatment and possible ECT. Her insurance refused to pay for that and stated she needed to return to [place]. The attending physician in [place] then alden díazd and I agreed to accept the patient at [facility]. Her flew back to [facility], picked her up, brought her back here and took her to the emergency department where she was gregorio luated and thought to meet criteria for inpatient care. She was then admitted to [facility] inpatient unit for evaluation for her ongoing treatment resistant depression and possible ECT . ADMITTING DIAGNOSES: Major depressive disorder, recurrent, severe without psychosis, chronic with tr eatment-resistant features; possible generalized anxiety disorder; Crohn disease, status post total c olectomy and ileostomy; type 2 diabetes; hypertension; obesity; sleep apnea; unemployment; financial stressors. ADMITTING PHYSICAL EXAMINATION: Performed by Dr. Paramjit Pinto revealed no acute physical findings . ADMISSION LABORATORY: CBC showed an H and H low at 11.3 and 35.5. Recheck of hematocrit was 36.6, p latelets were adequate at 250,000. HOSPITAL COURSE: Patient was admitted to the [facility] inpatient unit on a voluntary basis. She was extremely anxious and apparently regressed as she was unable to communicate effective ly. She would stand with her hands straight out from her waist rather rigidly and shake while she pa nted. She then would moan "help me" or "I don't feel good." This was very difficult to break and in terfered with most meaningful communications. I was able to interview her and assess her for appropr iateness for ECT. She stated she was agreeable to doing ECT. I then spoke also with her who was agreeable for her to do ECT as well. She was able, in my mind, to provide informed consent and she was given educational materials which she states she did read some of. She then asked appropriat e questions prior to treatment, and I believe she was able to make this decision for herself. We pro ceeded with acute course ECT beginning on 09/23/18. We began with bilateral treatment at 35% energy. She tolerated the treatment well physically and mentally, and had a good seizure. We then proceede d with continued standard acute course treatments for a total of 10 treatments all given bilaterally, ending on the day of discharge, 10/14/2018. Patient's hospitalization progressed satisfactorily. She gradually improved, demonstrated by a much brighter affect. She was able to care for herself, performing her ADLs, ostomy care and bathing, whi ch she was not doing upon admission. She also was social, coming out to the milieu and visiting with staff and fellow patients. She was smiling and laughing spontaneously and was no longer covering he r head with her ball cap at all times. She tolerated the treatments well from a cognitive standpoint with minimal notable cognitive issues. She complained of short-term memory problems and slowed proc essing, and was clearly struggling to give goal-directed answers to questions before ECT started. Th is actually improved in my mind during the course of ECT overall. A big challenge for the patient was the return of these anxiety episodes. They, again, were quite re gressive and somewhat infantile where she would become anxious and then start saying "help me" and "I feel bad." She states she would shake and stick her arms out stiffly. We were able to formulate a behavioral plan in order to redirect her from this behavior, but when her family would visit, they we re not. Her had a consistent experience that she would behave this way every time he visited and he lacked rachel in us that she was actually improving. He went as far suggesting that we were n ot being truthful about her progress and the staff and myself attempted to explain to him on numerous occasions that she simply was more prone to regression when he was around for whatever reason. This continued up until the time of discharge in which he stated he did not believe she was stable enough to return home, though I very much did believe she was no longer meeting inpatient criteria. She wa s able to do all of her own activities of daily living, was demonstrating a euthymic, stable and appr opriate affect, and was eating and sleeping well. He ultimately did agree for her to return home, th ough did not demonstrate much confidence this would be successful due to her tendency to regress in t hat setting. We discussed followup with [facility] through the [facility] and numerous messages were left with them. They ultimately responded stating that they would be able to provide an appointment on the Wednesday following discharge. I also suggested that they investigate home health nursing through their insurance if they felt this was helpful as our care coordinators w ere unable to access this for some reason. CONDITION ON DISCHARGE: Much improved. Her affect was euthymic, stable and appropriate, and she was functioning well. DISCHARGE MEDICATIONS: Acetaminophen 650 mg every 6 hours as needed for pain. Iron sulfate 325 mg d aily. Lantus insulin 22 units subcu at bedtime. Lispro Humalog sliding scale three times daily with meals. Labetalol 100 mg p.o. twice daily. Ativan 0.5-1 mg every 4 hours as needed for anxiety. La tuda 80 mg daily. Melatonin 3-6 mg p.o. at bedtime p.r.n. sleep. Glucophage 500 mg p.o. twice daily . Lipitor 20 mg p.o. at bedtime. Clonazepam 1 mg p.o. twice daily. DISCHARGE DIAGNOSES: Major depressive disorder, recurrent, severe, without psychosis with treatment- resistant features; chronic illness; recurrent illness; ileostomy; diabetes; hypertension; hyperlipid emia. DISPOSITION: Patient left the hospital with a family friend to return to her home in [place]. FOLLOWUP: With [facility] through [facility]. Patient is given written in formation regarding this at the time of discharge. Attitude at discharge was anxious. Patient was a full code throughout her stay. Patient was voluntary patient throughout her stay. Dotty rome was administered screenings for alcohol, nicotine, cannabis, and metabolic issues. No further r eferrals were made along these lines, except to follow up with her PCP for diabetes. There were no pending labs or studies at the time of discharge. Patient was instructed to follow up with her primary care physician and continue her sliding scale as her blood sugar control was much improved in the hospital with this. /[id number]/MODL
== END 2018-10-14 13:58 | disposition home or self-care (01) | DRG 885 ==
LOC: BBEH 09-21 00:15
PROVIDERS: ADMIT Psychiatry & Neurology Behavioral Neurology & Neuropsychiatry; ATTEND Psychiatry & Neurology Psychiatry
PROC: GZB2ZZZ Electroconvulsive Therapy, Bilateral-Single Seizure (ICD-10-PCS; principal; 2018-09-23)
DX: F33.2 Major depressive disorder, recurrent severe without psychotic features (principal); K50.90 Crohn's disease, unspecified, without complications; E11.9 Type 2 diabetes mellitus without complications; I12.9 Hypertensive chronic kidney disease with stage 1 through stage 4 chronic kidney disease, or unspecified chronic kidney disease; E66.9 Obesity, unspecified; E78.5 Hyperlipidemia, unspecified; G47.00 Insomnia, unspecified; G47.33 Obstructive sleep apnea (adult) (pediatric); N18.9 Chronic kidney disease, unspecified; Z79.4 Long term (current) use of insulin; Z93.2 Ileostomy status; Z90.49 Acquired absence of other specified parts of digestive tract
CPT/HCPCS: 80305; G0480; J0330; J1815; J1885; J2250; J2405; J2704; J3010